=== PATIENT | female | born 1980 | race Caucasian/White ===

== ENCOUNTER 2022-09-01 12:40 | Outpatient (CLI) | payer MEDICAID, SELFPAY ==
--- NOTE | 2022-09-01 | US_ITS ---
WS: [id number] ULTRASOUND PELVIS TECHNIQUE: Transabdominal. Transvaginal not performed due to concerns about insurance coverage CLINICAL INFORMATION: RLQ ABDOMINAL PAIN LMP 08/04/22 : No. COMPARISON: None. FINDINGS: Heterogeneous uterus myometrium likely due to adenomyosis versus small fibroids. Orientation: Anteverted. Size: 9.2 cm x 5.8 cm x 5.3 cm Cervix: Normal Endometrium: Normal. Endometrium thickness: 0.7 cm. Adnexa: Large cyst RIGHT ovary measuring with peripheral nodule likely retracted clot. This measures 4.6 x 5.3 x 6.0 CM. Incidental simple cyst LEFT ovary measuring 1.3 x 1.0 x 1.2 cm Right ovary size: 6.9 cm x 4.9 cm x 5.8 cm. Right ovary volume: 103.1 ccm3 Left ovary size: 3.2 cm x 2.1 cm x 1.7 cm. Left ovary volume: 5.9 ccm3 Free fluid: None. Other findings: None. US/US pelvic complete* [id number] IMPRESSION: 1. Large cyst RIGHT ovary with peripheral nodule likely retracted clot. This m easures 4.6 x 5.3 x 6.0 CM. Recommend interval follow-up in one to 2 menstrual cycles to ensure resolution. 2. Incidental simple cyst LEFT ovary measuring 1.3 x 1.0 x 1.2 cm 3. Normal endometrium measures 6.4 mm 4. Heterogeneous uterus myometrium likely due to adenomyosis versus small fibr oids. 5. No free fluid in the cul-de-sac.
== END 2022-09-01 12:41 | disposition home or self-care (01) ==
LOC: RAD 12:47
PROVIDERS: Visit Provider Family Medicine
DX: R10.31 Right lower quadrant pain (principal); N83.201 Unspecified ovarian cyst, right side; N83.202 Unspecified ovarian cyst, left side
CPT/HCPCS: 76856

== ENCOUNTER 2022-09-22 11:39 | Outpatient (CLI) | payer MEDICAID, SELFPAY ==
--- NOTE | 2022-09-22 11:53 | MM_ITS ---
WS: [id number] DIAGNOSTIC BILATERAL DIGITAL BREAST TOMOSYNTHESIS MAMMOGRAPHY WITH CAD RIGHT breast ultrasound, limited HISTORY: OCCLUSION OF DUCT COMPARISON: None available. TECHNIQUE: Bilateral craniocaudad, mediolateral oblique, and mediolateral views are submitted with to mosynthesis and SM. Spot compression RIGHT CC and MLO. Computer aided detection utilized. Breast composition: The breasts are extremely dense, which lowers the sensitivity of mammography. Rosa asts are extremely dense. This is likely related to active ongoing milk production and continued jerome st-feeding. There is dense tissue posterior to each nipple. RIGHT breast ultrasound, limited. Ultrasound directed posterior to the nipple. There are mildly dilated ducts. Typical for history of l actation. There is no mass or significant duct ectasia or debris. MM/[place] [id number] IMPRESSION: BI-RADS: 2-Benign FOLLOW UP: 1 Year Follow-up
== END 2022-09-22 11:40 | disposition home or self-care (01) ==
LOC: RAD 11:39
PROVIDERS: Visit Provider Family Medicine
DX: N64.89 Other specified disorders of breast (principal)
CPT/HCPCS: 76642; 77062; G0279

== ENCOUNTER → 2023-11-03 11:11 | Outpatient (BNVA) | payer MEDICAID, SELFPAY | PROVIDERS: PCP Family Medicine; Visit Provider Nurse Practitioner Women's Health | DX: N93.9 Abnormal uterine and vaginal bleeding, unspecified (principal); D25.9 Leiomyoma of uterus, unspecified | CPT/HCPCS: 76830 ==

== ENCOUNTER 2023-11-21 03:54 | Inpatient (IN) | payer MEDICAID, SELFPAY ==
[2023-11-21] VITALS (80 sets, daily range): BP systolic 93–140; BP diastolic 48–117; PULSE 60–110; RESP 0–38; TEMP 36.6–39.3; O2SAT 94–100; BMI 21.6; BMI 23.9
--- NOTE | 2023-11-21 04:02 | CTR_ITS ---
PROCEDURE INFORMATION: Exam: CT Head Without Contrast Exam date and time: 11/21/2023 4:12 AM Age: 43 years old Clinical indication: Condition or disease; Convulsions or seizures; Patient HX: PT had witnessed seizure while being registered in [place]. Per family PT was having ALLEN with n/v prior to seizure. ; Additional info: AMS, seizure TECHNIQUE: Imaging protocol: Computed tomography of the head without contrast. Radiation optimization: All CT scans at this facility use at least one of these dose optimization techniques: automated exposure control; mA and/or kV adjustment per patient size (includes targeted exams where dose is matched to clinical indication); or iterative reconstruction. COMPARISON: No relevant prior studies available. RADIATION DOSE METRICS: Total DLP (mGy-cm): 211 FINDINGS: Brain: Normal. No hemorrhage. Unremarkable white matter. No mass effect. Cerebral ventricles: No ventriculomegaly. Paranasal sinuses: Visualized sinuses are unremarkable. No fluid levels. Mastoid air cells: Visualized mastoid air cells are well aerated. Bones/joints: Unremarkable. No acute fracture. Soft tissues: Unremarkable. CT/CT head wo con* [id number] IMPRESSION: No acute intracranial abnormality.
--- NOTE | 2023-11-21 04:02 | XRR_ITS ---
PROCEDURE INFORMATION: Exam: XR Chest Exam date and time: 11/21/2023 4:04 AM Age: 43 years old Clinical indication: Patient HX: PT had witnessed seizure while being registered in er lobby. Per family PT was having ALLEN with n/v prior to seizure. ; Additional info: AMS TECHNIQUE: Imaging protocol: Radiologic exam of the chest. Views: 1 view. COMPARISON: No relevant prior studies available. FINDINGS: Lungs: Unremarkable. No consolidation. Pleural spaces: Unremarkable. No pleural effusion. No pneumothorax. Heart/Mediastinum: Unremarkable. No cardiomegaly. Bones/joints: Unremarkable. XR/XR chest 1V portable [id number] IMPRESSION: No acute findings.
[2023-11-21 04:10] LABS: Basophils % 0.2 %; Eosinophils % 0.3 %; Lymphocytes # 2.4 10^3/uL (0.8-4.8); Lymphocytes % 17.5 %; Mean Corpuscular HGB Conc 32.8 g/dL (30-55); Mean Corpuscular Hemoglobin 31.8 pg (27-33); Mean Corpuscular Volume 96.8 fl (85-98); Mean Platelet Volume 11.9 fL (7.4-10.4); Monocytes # 0.6 10^3/uL (0.2-0.9); Monocytes % 4.6 %; Neutrophils # 10.51 10^3/uL (1.8-7.7); Neutrophils % 76.7 %; Nucleated Red Blood Cells % 0 %; Platelet Count 207 10^3/cmm (157-399); Red Blood Count 4.03 10^6/uL (3.85-5.65); Red Cell Distribution Width 10.9 % (12.1-15.1); White Blood Count 13.69 10^3/uL (3.29-11.43)
--- NOTE | 2023-11-21 04:11 | ED_ITS ---
Documented by User: Denny Anthony DO 11/21/23 05:55 HPI - Seizure 2 General: Chief Complaint: Seizure Stated Complaint: n/v delayed response Time Seen by Provider: 11/21/23 04:08 History of Present Illness: HPI Narrative: 43-year-old female with no prior history of seizure disorder. Her says that she can have a headache last evening, may be 7 PM or so. She began to vomit around that time as well. She had several episodes of vomiting. She will try to drink water, and vomited up. He noticed across the night that when she responded, the responses became slower and slower. He brought her to the hospital this morning for evaluation, and she collapsed in triage, and may have had a seizure. She presents obtunded at this point and unable to answer questions for herself. She does respond to touch. She is no longer rigid. Associated symptoms: Deny fever(s) Review of Systems 2 General: Reports: ROS unobtainable due to medical condition and Other (history taken from ) Const: Denies: fever(s) GI: Reports: abdominal pain, nausea and vomiting; Denies: diarrhea Neuro: Reports: headache(s) PFS ED 2 PFSH: Medical History (Updated 11/21/23 @ 05:55 by Denny Anthony DO) Right ovarian cyst Surgical History H/O removal of cyst #1-2011 --Laparotomy-- ovarian cyst removal Right ovary. Performed in the [facility] #2-2018 -- Laparoscopic cyst removal of right ovary. Performed in the [facility] Family History Grandmother Hypertension Diabetes Grandfather Stroke Denies family history of Colon cancer Ovarian cancer Prostate cancer Heart disease Hyperlipidemia Breast cancer Uterine cancer Thyroid disease Social History (Updated 11/21/23 @ 04:59 by Calos Marino MD) Alcohol intake: unknown Substance/Drug Use: unknown Physical Exam 2 Const: GENERAL APPEARANCE: ill appearing ORIENTATION/CONSCIOUSNESS: Yes patient obtunded HENMT: COMMON NORMALS: normocephalic, atraumatic and Normal external nose present HEAD & SCALP: normocephalic and atraumatic FACE & SINUS: normal facial exam and face symmetric NOSE: Normal external nose present and Normal nares present Eye: COMMON NORMALS: Equal, round and reactive pupils present PUPIL: Yes Equal, round and reactive pupils present Neck/C-Spine: GENERAL: Yes trachea midline and No anterior neck swelling Chest: CHEST: Yes Symmetrical chest wall rise Resp: COMMON NORMALS: clear to auscultation bilaterally EFFORT & INSPECTION: Yes tachypneic AUSCULTATION: clear to auscultation bilaterally Cardio: COMMON NORMALS: regular rate and regular rhythm RATE: regular rate RHYTHM: regular rhythm GI: COMMON NORMALS: Normal to inspection, nondistended, normoactive bowel sounds present Neuro: ALLA COMA SCALE: document GCS findings Alla coma scale eye opening: To pressure [place] coma scale verbal response: Sounds Alla coma scale motor response: Localising [place] coma scale total score: 9 Skin: NARRATIVE SKIN EXAM: Small abrasion right abdomen Course 2 Vital Signs: Vital signs: Vital Signs Pulse Rate 94 11/21/23 05:26 Respiratory Rate 20 H 11/21/23 05:26 Blood Pressure 101/69 11/21/23 05:26 Pulse Oximetry 100 11/21/23 05:26 Oxygen Delivery Me thod Room Air 11/21/23 04:00 MDM - Seizure MDM Narrative Medical decision making narrative: Headache and vomiting in a patient with mental status changes, who seized in the lobby. Vital signs are stable. She is mildly obtunded, but withdraws to stimuli purposefully, and opens eyes occasionally now. White blood cell count is 13.7. CBC is otherwise normal. Sodium is 120. Potassium is 3.0. Bicarb is 15. Lactate is 11. pH is 7.26. She is hydrated with IV fluid here. Head CT and belly CT are nonacute. Chest x-ray shows no acute findings. Spoke with the hospitalist. He will admit to ICU for hyponatremia with seizure. He has seen the patient in the ER. Lab Data 11/21/23 04:00 11/21/23 04:00 Labs: Radiology Impressions Chest X-Ray 11/21/23 04:02 IMPRESSION: No acute findings. Head CT 11/21/23 04:02 IMPRESSION: No acute intracranial abnormality. Abdomen/Pelvis CT 11/21/23 04:46 IMPRESSION: Negative for acute abdominopelvic pathology. Laboratory Results WBC 13.69 10^3/uL (3.29-11.43) H 11/21/23 04:00 RBC 4.03 10^6/uL (3.85-5.65) 11/21/23 04:00 Hgb 12.80 g/dL (11.27-16.99) 11/21/23 04:00 Hct 39.0 % (36-47) 11/21/23 04:00 MCV 96.8 fl (85-98) 11/21/23 04:00 MCH 31.8 pg (27-33) 11/21/23 04:00 MCHC 32.8 g/dL (30-55) 11/21/23 04:00 RDW 10.9 % (12.1-15.1) L 11/21/23 04:00 Plt Count 207 10^3/cmm (157-399) 11/21/23 04:00 MPV 11.9 fL (7.4-10.4) H 11/21/23 04:00 Neut % (Auto) 76.7 % 11/21/23 04:00 Lymph % (Auto) 17.5 % 11/21/23 04:00 Jack % (Auto) 4.6 % 11/21/23 04:00 Eos % (Auto) 0.3 % 11/21/23 04:00 Baso % (Auto) 0.2 % 11/21/23 04:00 Neut # (Auto) 10.51 10^3/uL (1.8-7.7) H 11/21/23 04:00 Lymph # (Auto) 2.4 10^3/uL (0.8-4.8) 11/21/23 04:00 Jack # (Auto) 0.6 10^3/uL (0.2-0.9) 11/21/23 04:00 Eos # (Auto) 0.0 10^3/uL (0.0-0.8) 11/21/23 04:00 Baso # (Auto) 0.0 10^3/uL (0.0-0.1) 11/21/23 04:00 Nucleated RBC % (auto) 0 % 11/21/23 04:00 Nucleated RBCs # 0.0 /100WBC 11/21/23 04:00 Specimen Type Arterial 11/21/23 04:13 Sample Site Radial, left 11/21/23 04:13 ABG pH 7.26 (7.35-7.45) L 11/21/23 04:13 ABG pCO2 30.6 mmHg (35-45) L 11/21/23 04:13 ABG pO2 99.7 mmHg (80.0-100.0) 11/21/23 04:13 ABG HCO3 13.7 mmol/L (22-26) L 11/21/23 04:13 ABG Base Excess -12.2 mmol/L (-2.0-2.0) L 11/21/23 04:13 Joey Test Pos 11/21/23 04:13 Hematocrit 35.4 % (37-47) L 11/21/23 04:13 O2 Delivery Device Room air 11/21/23 04:13 Manager Strategic Development ID [email or web address] 11/21/23 04:13 Sodium 120 mmol/L (136-145) L 11/21/23 04:00 Potassium 3.0 mmol/L (3.5-5.1) L 11/21/23 04:00 Chloride 83 mmol/L (98-107) L 11/21/23 04:00 Carbon Dioxide 15 mmol/L (22-29) L 11/21/23 04:00 Anion Gap 25.0 (5-19) H 11/21/23 04:00 BUN 11 mg/dL (6-20) 11/21/23 04:00 Creatinine 0.7 mg/dL (0.5-0.9) 11/21/23 04:00 GFR Calculation 92.2 mL/min (90-130) 11/21/23 04:00 Glucose 126 mg/dL (65-115) H 11/21/23 04:00 Calculated Osmolality 251 mOsm/kg (285-295) L 11/21/23 04:00 Lactic Acid 11.6 mmol/L (0.5-2.2) H* 11/21/23 04:00 Calcium 8.1 mg/dL (8.5-10.5) L 11/21/23 04:00 Phosphorus 2.6 mg/dL (2.5-4.5) 11/21/23 04:00 Magnesium 1.5 mg/dL (1.7-2.3) L 11/21/23 04:00 Total Bilirubin 1.3 mg/dL (0.15-1.2) H 11/21/23 04:00 AST 28 U/L (0-32) 11/21/23 04:00 ALT 18 U/L (0-33) 11/21/23 04:00 Alkaline Phosphatase 78 U/L (35-105) 11/21/23 04:00 C-Reactive Protein 3.0 mg/L (0.0-4.9) 11/21/23 04:00 Total Protein 7.5 g/dL (6.6-8.7) 11/21/23 04:00 Albumin 4.5 g/dL (3.5-5.2) 11/21/23 04:00 Globulin 3.0 g/dL (1.3-4.6) 11/21/23 04:00 Procalcitonin 0.04 ng/mL (0-0.5) 11/21/23 04:00 HCG, Qual Negative (Negative) 11/21/23 04:00 Urine Color Yellow (Yellow) 11/21/23 05:20 Urine Appearance Clear (CLEAR) 11/21/23 05:20 Urine pH 6 (5-7) 11/21/23 05:20 Ur Specific [place] 1.016 (1.005-1.030) 11/21/23 05:20 Urine Protein Neg (Negative) 11/21/23 05:20 Urine Glucose (UA) Norm (Normal) 11/21/23 05:20 Urine Ketones 1+ (Negative) H 11/21/23 05:20 Urine Blood 3+ (Negative) H 11/21/23 05:20 Urine Nitrate Negative (Negative) 11/21/23 05:20 Urine Bilirubin Neg (Negative) 11/21/23 05:20 Urine Urobilinogen Neg mg/dL (Negative) 11/21/23 05:20 Ur Leukocyte Esterase Negative (Negative) 11/21/23 05:20 Urine RBC 15-25 /hpf (0-2) H 11/21/23 05:20 Urine WBC 0-4 /hpf (0-5) H 11/21/23 05:20 Ur Squamous Epith Cells 0-4 /hpf (0-5) H 11/21/23 05:20 Amorphous Sediment Not Reportable 11/21/23 05:20 Urine Bacteria Trace /hpf (NONE) 11/21/23 05:20 Urine Mucus Trace /hpf 11/21/23 05:20 Salicylates < 0.3 mg/dL (3-10) L 11/21/23 04:00 Urine Opiates Screen Negative ng/mL (Negative) 11/21/23 05:20 Acetaminophen < 5.0 ug/mL (10-30) L 11/21/23 04:00 Ur Barbiturates Screen Negative ng/mL (Negative) 11/21/23 05:20 Ur Phencyclidine Scrn Negative ng/mL (Negative) 11/21/23 05:20 Ur Amphetamines Screen Negative ng/mL (Negative) 11/21/23 05:20 U Benzodiazepines Scrn Negative ng/mL (Negative) 11/21/23 05:20 Urine Cocaine Screen Negative ng/mL (Negative) 11/21/23 05:20 U Marijuana (THC) Screen Negative ng/mL (Negative) 11/21/23 05:20 Ethyl Alcohol < 10 mg/dL (0-10) 11/21/23 04:00 All radiology interpretation(s) finalized by discharge Critical Care Time 2 Critical Care Time: Critical Care Time: Yes Total Critical Care Time: 35 Attestation: This case had a high probability of a clinically significant, sudden, or life threatening deterioration of this patient's condition which required my full and direct attention, intervention and personal management. Time is independent of any procedures performed Discharge Plan Discharge Patient Disposition: Admitted As Inpatient Admit Provider: Calos Marino Clinical Impression: Seizure, Lactic acidosis, Nausea & vomiting, Hypokalemia Condition: Serious Coding Level of Care Code ED Ladies Attendant for Chg Fwd Documented by User: Calos Marino MD 11/21/23 05:33 HPI - Seizure 2 General: Chief Complaint: Seizure Stated Complaint: n/v delayed response Time Seen by Provider: 11/21/23 04:08 PFSH ED 2 PFSH: Medical History (Updated 11/21/23 @ 05:55 by Denny Anthony DO) Right ovarian cyst Surgical History H/O removal of cyst #1-2011 --Laparotomy-- ovarian cyst removal Right ovary. [facility] -- Laparoscopic cyst removal of right ovary. Performed in the [facility] Family History Grandmother Hypertension Diabetes Grandfather Stroke Denies family history of Colon cancer Ovarian cancer Prostate cancer Heart disease Hyperlipidemia Breast cancer Uterine cancer Thyroid disease Social History (Updated 11/21/23 @ 04:59 by Calos Marino MD) Alcohol intake: unknown Substance/Drug Use: unknown Physical Exam 2 Neuro: ALLA COMA SCALE: document GCS findings Alla coma scale total score: 9 Course 2 Vital Signs: Vital signs: Vital Signs Pulse Rate 94 11/21/23 05:26 Respiratory Rate 20 H 11/21/23 05:26 Blood Pressure 101/69 11/21/23 05:26 Pulse Oximetry 100 11/21/23 05:26 Oxygen Delivery Me thod Room Air 11/21/23 04:00 MDM - Seizure Lab Data 11/21/23 04:00 11/21/23 04:00 Labs: Radiology Impressions Chest X-Ray 11/21/23 04:02 IMPRESSION: No acute findings. Head CT 11/21/23 04:02 IMPRESSION: No acute intracranial abnormality. Abdomen/Pelvis CT 11/21/23 04:46 IMPRESSION: Negative for acute abdominopelvic pathology. Laboratory Results WBC 13.69 10^3/uL (3.29-11.43) H 11/21/23 04:00 RBC 4.03 10^6/uL (3.85-5.65) 11/21/23 04:00 Hgb 12.80 g/dL (11.27-16.99) 11/21/23 04:00 Hct 39.0 % (36-47) 11/21/23 04:00 MCV 96.8 fl (85-98) 11/21/23 04:00 MCH 31.8 pg (27-33) 11/21/23 04:00 MCHC 32.8 g/dL (30-55) 11/21/23 04:00 RDW 10.9 % (12.1-15.1) L 11/21/23 04:00 Plt Count 207 10^3/cmm (157-399) 11/21/23 04:00 MPV 11.9 fL (7.4-10.4) H 11/21/23 04:00 Neut % (Auto) 76.7 % 11/21/23 04:00 Lymph % (Auto) 17.5 % 11/21/23 04:00 Jack % (Auto) 4.6 % 11/21/23 04:00 Eos % (Auto) 0.3 % 11/21/23 04:00 Baso % (Auto) 0.2 % 11/21/23 04:00 Neut # (Auto) 10.51 10^3/uL (1.8-7.7) H 11/21/23 04:00 Lymph # (Auto) 2.4 10^3/uL (0.8-4.8) 11/21/23 04:00 Jack # (Auto) 0.6 10^3/uL (0.2-0.9) 11/21/23 04:00 Eos # (Auto) 0.0 10^3/uL (0.0-0.8) 11/21/23 04:00 Baso # (Auto) 0.0 10^3/uL (0.0-0.1) 11/21/23 04:00 Nucleated RBC % (auto) 0 % 11/21/23 04:00 Nucleated RBCs # 0.0 /100WBC 11/21/23 04:00 Specimen Type Arterial 11/21/23 04:13 Sample Site Radial, left 11/21/23 04:13 ABG pH 7.26 (7.35-7.45) L 11/21/23 04:13 ABG pCO2 30.6 mmHg (35-45) L 11/21/23 04:13 ABG pO2 99.7 mmHg (80.0-100.0) 11/21/23 04:13 ABG HCO3 13.7 mmol/L (22-26) L 11/21/23 04:13 ABG Base Excess -12.2 mmol/L (-2.0-2.0) L 11/21/23 04:13 Joey Test Pos 11/21/23 04:13 Hematocrit 35.4 % (37-47) L 11/21/23 04:13 O2 Delivery Device Room air 11/21/23 04:13 Manager Strategic Development ID [email or web address] 11/21/23 04:13 Sodium 120 mmol/L (136-145) L 11/21/23 04:00 Potassium 3.0 mmol/L (3.5-5.1) L 11/21/23 04:00 Chloride 83 mmol/L (98-107) L 11/21/23 04:00 Carbon Dioxide 15 mmol/L (22-29) L 11/21/23 04:00 Anion Gap 25.0 (5-19) H 11/21/23 04:00 BUN 11 mg/dL (6-20) 11/21/23 04:00 Creatinine 0.7 mg/dL (0.5-0.9) 11/21/23 04:00 GFR Calculation 92.2 mL/min (90-130) 11/21/23 04:00 Glucose 126 mg/dL (65-115) H 11/21/23 04:00 Calculated Osmolality 251 mOsm/kg (285-295) L 11/21/23 04:00 Lactic Acid 11.6 mmol/L (0.5-2.2) H* 11/21/23 04:00 Calcium 8.1 mg/dL (8.5-10.5) L 11/21/23 04:00 Phosphorus 2.6 mg/dL (2.5-4.5) 11/21/23 04:00 Magnesium 1.5 mg/dL (1.7-2.3) L 11/21/23 04:00 Total Bilirubin 1.3 mg/dL (0.15-1.2) H 11/21/23 04:00 AST 28 U/L (0-32) 11/21/23 04:00 ALT 18 U/L (0-33) 11/21/23 04:00 Alkaline Phosphatase 78 U/L (35-105) 11/21/23 04:00 C-Reactive Protein 3.0 mg/L (0.0-4.9) 11/21/23 04:00 Total Protein 7.5 g/dL (6.6-8.7) 11/21/23 04:00 Albumin 4.5 g/dL (3.5-5.2) 11/21/23 04:00 Globulin 3.0 g/dL (1.3-4.6) 11/21/23 04:00 Procalcitonin 0.04 ng/mL (0-0.5) 11/21/23 04:00 HCG, Qual Negative (Negative) 11/21/23 04:00 Urine Color Yellow (Yellow) 11/21/23 05:20 Urine Appearance Clear (CLEAR) 11/21/23 05:20 Urine pH 6 (5-7) 11/21/23 05:20 Ur Specific [place] 1.016 (1.005-1.030) 11/21/23 05:20 Urine Protein Neg (Negative) 11/21/23 05:20 Urine Glucose (UA) Norm (Normal) 11/21/23 05:20 Urine Ketones 1+ (Negative) H 11/21/23 05:20 Urine Blood 3+ (Negative) H 11/21/23 05:20 Urine Nitrate Negative (Negative) 11/21/23 05:20 Urine Bilirubin Neg (Negative) 11/21/23 05:20 Urine Urobilinogen Neg mg/dL (Negative) 11/21/23 05:20 Ur Leukocyte Esterase Negative (Negative) 11/21/23 05:20 Urine RBC 15-25 /hpf (0-2) H 11/21/23 05:20 Urine WBC 0-4 /hpf (0-5) H 11/21/23 05:20 Ur Squamous Epith Cells 0-4 /hpf (0-5) H 11/21/23 05:20 Amorphous Sediment Not Reportable 11/21/23 05:20 Urine Bacteria Trace /hpf (NONE) 11/21/23 05:20 Urine Mucus Trace /hpf 11/21/23 05:20 Salicylates < 0.3 mg/dL (3-10) L 11/21/23 04:00 Urine Opiates Screen Negative ng/mL (Negative) 11/21/23 05:20 Acetaminophen < 5.0 ug/mL (10-30) L 11/21/23 04:00 Ur Barbiturates Screen Negative ng/mL (Negative) 11/21/23 05:20 Ur Phencyclidine Scrn Negative ng/mL (Negative) 11/21/23 05:20 Ur Amphetamines Screen Negative ng/mL (Negative) 11/21/23 05:20 U Benzodiazepines Scrn Negative ng/mL (Negative) 11/21/23 05:20 Urine Cocaine Screen Negative ng/mL (Negative) 11/21/23 05:20 U Marijuana (THC) Screen Negative ng/mL (Negative) 11/21/23 05:20 Ethyl Alcohol < 10 mg/dL (0-10) 11/21/23 04:00 Discharge Plan Discharge Patient Disposition: Admitted As Inpatient Admit Provider: Calos Marino Clinical Impression: Seizure, Lactic acidosis, Nausea & vomiting, Hypokalemia Condition: Serious Coding Level of Care Code ED Ladies Attendant for Oleg Maki
[2023-11-21 04:22] LABS: HCG, Serum Qual Negative (Negative)
[2023-11-21] MEDS: LORazepam 2 mg/mL INJ 10 mL MDV IVP (04:22)
[2023-11-21 04:24] LABS: ABG PCO2 30.6 mmHg (35-45); ABG PH Result 7.26 (7.35-7.45); Arterial Blood Gas Hematocrit 35.4 % (37-47); Base Excess ABG -12.2 mmol/L (-2.0-2.0); Blood Gas Allen Test Pos; Blood Gas Sample Site Radial, left; Blood Gas Sample Type Arterial; HCO3 ABG 13.7 mmol/L (22-26); Oxygen Device ROOM AIR; PO2 ABG 99.7 mmHg (80.0-100.0)
[2023-11-21] MEDS: sodium chloride 0.9% 1,000 ML 999 ML IV (04:28)
[2023-11-21 04:31] LABS: Alanine Aminotransferase 18 U/L (0-33); Albumin Level 4.5 g/dL (3.5-5.2); Alkaline Phosphatase 78 U/L (35-105); Aspartate Amino Transferase 28 U/L (0-32); Blood Urea Nitrogen 11 mg/dL (6-20); Calcium 8.1 mg/dL (8.5-10.5); Carbon Dioxide 15 mmol/L (22-29); Chloride 83 mmol/L (98-107); Creatinine Clr Calc Pharmacy 96.4833; Glomerular Filtration Rate 92.2 mL/min (90-130); Glucose 126 mg/dL (65-115); Magnesium 1.5 mg/dL (1.7-2.3); Osmolality Calculated 251 mOsm/kg (285-295); Phosphorus 2.6 mg/dL (2.5-4.5); Sodium 120 mmol/L (136-145); Total Bilirubin 1.3 mg/dL (0.15-1.2); Total Protein 7.5 g/dL (6.6-8.7)
[2023-11-21 04:32] LABS: Lactic Sepsis W/Reflex 11.6 mmol/L (0.5-2.2)
[2023-11-21 04:33] LABS: Acetaminophen < 5.0 ug/mL (10-30); Alcohol Level < 10 mg/dL (0-10); Salicylate < 0.3 mg/dL (3-10)
--- NOTE | 2023-11-21 04:46 | CTR_ITS ---
PROCEDURE INFORMATION: Exam: CT Abdomen And Pelvis With Contrast Exam date and time: 11/21/2023 5:00 AM Age: 43 years old Clinical indication: Abnormal findings; Abnormal lab test; Nausea and vomiting; Prior surgery; Surgery date: 6+ months; Surgery type: Ovarian cyst; Patient HX: N/v with elevated wbc and lactic acid of 11.6. ; Additional info: Vomiting, abd pain TECHNIQUE: Imaging protocol: Computed tomography of the abdomen and pelvis with contrast. Radiation optimization: All CT scans at this facility use at least one of these dose optimization techniques: automated exposure control; mA and/or kV adjustment per patient size (includes targeted exams where dose is matched to clinical indication); or iterative reconstruction. Contrast material: OMNI 350; Contrast volume: 80 ml; Contrast route: INTRAVENOUS (IV); COMPARISON: US transvaginal [id number] 11/03/2023 11:22 AM RADIATION DOSE METRICS: Total DLP (mGy-cm): 1458.16 FINDINGS: Liver: Small simple cyst right inferior liver. Gallbladder and bile ducts: Normal. No calcified stones. No ductal dilation. Pancreas: Normal. No ductal dilation. Spleen: Normal. No splenomegaly. Adrenal glands: Normal. No mass. Kidneys and ureters: Normal. No hydronephrosis. Stomach and bowel: Unremarkable. No obstruction. No mucosal thickening. Appendix: No evidence of appendicitis. Intraperitoneal space: Unremarkable. No free air. No significant fluid collection. Vasculature: Unremarkable. No abdominal aortic aneurysm. Lymph nodes: Unremarkable. No enlarged lymph nodes. Urinary bladder: Valentine catheter within the bladder. Negative for bladder wall thickening. Reproductive: Unremarkable as visualized. Bones/joints: Unremarkable. No acute fracture. Soft tissues: Unremarkable. CT/CT abdomen pelvis w con* [id number] IMPRESSION: Negative for acute abdominopelvic pathology.
--- NOTE | 2023-11-21 04:55 | P.HP_ITS ---
Providers/Chief Complaint 2 Primary Care Provider: Moise Whitehead MD Chief Complaint: n/v delayed response History of Present Illness Una Crain is a 43 year old female with a past medical history significant for ovarian cyst who presents to the emergency department with intractable nausea and vomiting. Of note, patient collapsed and appeared to have seizure in the ED waiting room. Patient has no known history of seizure disorder. She appears to be in a postictal state on physical exam and unable to provide pertinent history. History obtained from collateral information from family, ED provider and chart reviewing. Patient was reportedly in her usual state of health until yesterday evening around 7 PM when she developed severe headache following by severe and intractable nausea and vomiting. They report multiple episodes of emesis. Spouse noted her responses throughout the course of the evening became slower and slower as she became more lethargic. Spouse denies any similar symptoms. He states they have two children who also have been well without symptoms. They have been eating the same foods. He denies that she has complained of other new complaints. Review of Systems 2 Narrative: A complete review of systems was attempted to be obtained but unable as patient is in a stuporous state and unable to provide. Medications/Allergies Home Medications Medication Instructions Recorded Confirmed Last Taken Type multivitamin 1 tab PO DAILY 10/12/23 11/16/23 Unknown History naproxen 500 mg tablet 500 mg PO BID PRN pain #30 tabs 10/12/23 11/16/23 Unknown Rx Allergies Allergy/AdvReac Type Severity Reaction Status Date / Time No Known Allergies Allergy Unverified 11/16/23 10:39 PFSH Acute 2 PFSH: Medical History (Updated 11/21/23 @ 05:06 by Calos Marino MD) Right ovarian cyst Surgical History H/O removal of cyst #1-2011 --Laparotomy-- ovarian cyst removal Right ovary. Performed in the [facility] #2-2018 -- Laparoscopic cyst removal of right ovary. Performed in the [facility] Family History Grandmother Hypertension Diabetes Grandfather Stroke Denies family history of Colon cancer Ovarian cancer Prostate cancer Heart disease Hyperlipidemia Breast cancer Uterine cancer Thyroid disease Social History (Updated 11/21/23 @ 04:59 by Calos Marino MD) Alcohol intake: unknown Substance/Drug Use: unknown Vitals/I&O/Wt Last Vital Signs Pulse 79 11/21/23 04:34 Resp 20 H 11/21/23 04:34 BP 132/83 11/21/23 04:34 Pulse Ox 97 11/21/23 04:34 O2 Del Method Room Air 11/21/23 04:00 Weight last 48 hrs Weight 58.967 kg Physical Exam 2 Narrative: General: Patient is lethargic. Withdrawals to pain. Moves all 4 extremities. Head: Normocephalic. Atraumatic. Dry mucous membranes. Neck: No JVD. Cardiovascular: RRR. No gallops. No murmurs. No peripheral edema. Lungs: Clear to auscultation, no use of accessory muscles, no crackles or wheezes. Skin: No jaundice. No rashes. Abdomen: Normal bowel sounds, abdomen soft and nontender. Extremities: No cyanosis or clubbing. Musculoskeletal: No swollen or erythematous joints. Neurological: No myoclonus. Lethargic. Data 11/21/23 04:00 11/21/23 04:00 A&P Assessment and plan (1) Seizure: Seizure-like activity noted in ER waiting room area; now appears postictal on physical exam No known prior history of seizure Most likely related to underlying severe hyponatremia Treat electrolyte imbalances Given 1 L NS bolus in ED Plan for hypertonic if she seizes again or Na does not improve on recheck Seizure precautions Head CT reviewed, negative for acute findings Consider MRI, EEG and neurology consult pending clinical course (2) Nausea & vomiting: Intractable nausea and vomiting a/w headache producing multiple electrolyte abnormalities, metabolic/lactic acidosis Imaging reviewed, no obstruction noted on CT abd/pelvis Start IVF resuscitation Antiemetics as needed (3) Hyponatremia: Severe hyponatremia producing neurological symptoms w/ seizure Start correcting sodium Serial electrolyte checks (4) Hypokalemia: Likely from GI loss Replacing potassium Telemetry monitoring (5) Hypomagnesemia: Replace Mg (6) Lactic acidosis: Suspect 2/2 seizure, severe dehydration and underlying illness Obtain blood cultures Check inflammatory markers Plan DVT ppx: Heparin Code: Full Attestations 2 Medical Necessity Statement*: Pt presents with intractable nausea and vomiting with ED course complicated by seizure in waiting area likely from severe electrolyte disturbances with [facility] seizure workup/management, electrolyte management, symptom control of nausea/vomiting and supportive care. Coding Level of Care Code Acute Code for [facility] Diagnoses Seizure R56.9 Nausea & vomiting R11.2 Hyponatremia E87.1 Hypokalemia E87.6 Hypomagnesemia E83.42 Lactic acidosis E87.20
[2023-11-21] MEDS: iohexol 350 mg/mL 500 mL Btl (per mL) IV (05:01)
[2023-11-21 05:43] LABS: Add Urine Culture? Yes; Add Urine Microscopic? YES; Amphetamines Screen Urine Negative (Negative); Bacteria Urine TRACE /hpf; Barbiturates Screen Urine Negative (Negative); Benzodiazepines Screen Urine Negative (Negative); Bilirubin Urine Neg (Negative); Blood Urine 3+ (Negative); Cocaine Screen Urine Negative (Negative); Glucose Urine UA Norm (Normal); Ketones Urine 1+ (Negative); Leukocyte Esterase Urine Negative (Negative); Mucus Urine TRACE /hpf; Nitrate Urine Negative (Negative); Opiate Screen Urine Negative (Negative); PCP Screen Urine Negative (Negative); Protein Urine Neg (Negative); RBC Urine 15-25 /hpf (0-2); Specific Gravity, Urine 1.016 (1.005-1.030); Squamous Epithelial Cell Urine 0-4 /hpf (0-5); THC Screen Urine Negative (Negative); Urine Appearance Clear (CLEAR); Urine Color Yellow (Yellow); Urobilinogen Urine Neg (Negative); WBC Urine 0-4 /hpf (0-5); pH Urine 6 (5-7)
[2023-11-21 05:46] LABS: Procalcitonin 0.04 ng/mL (0-0.5)
[2023-11-21 05:54] LABS: Reflex Lactate Order REFLEX LACTIC ORDERD
[2023-11-21 07:11] LABS: Adenovirus Not Detected (NOT DETECT); Chlamydia Pneumoniae Not Detected (NOT DETECT); Coronavirus 229E,HKU1,NL63,OC4 Not Detected (NOT DETECT); Human Metapneumovirus Not Detected (NOT DETECT); Human Rhinovirus/Enterovirus Not Detected (NOT DETECT); Influenza A Not Detected (NOT DETECT); Influenza A H1 Not Detected (NOT DETECT); Influenza A H1-2009 Not Detected (NOT DETECT); Influenza A H3 Not Detected (NOT DETECT); Influenza B Not Detected (NOT DETECT); Mycoplasma Pneumoniae Not Detected (NOT DETECT); Parainfluenza Virus Type 1 Not Detected (NOT DETECT); Parainfluenza Virus Type 2 Not Detected (NOT DETECT); Parainfluenza Virus Type 3 Not Detected (NOT DETECT); Parainfluenza Virus Type 4 Not Detected (NOT DETECT); Respiratory Syncytial Virus A Not Detected (NOT DETECT); Respiratory Syncytial Virus B Not Detected (NOT DETECT); SARS-COV-2 Not Detected (NOT DETECT)
[2023-11-21 07:12] LABS: Lactic Acid level (Lactate) 1.3 mmol/L (0.5-2.2)
[2023-11-21 07:13] LABS: Anion Gap 9.4 (5-19); Blood Urea Nitrogen 10 mg/dL (6-20); Calcium 7.2 mg/dL (8.5-10.5); Carbon Dioxide 21 mmol/L (22-29); Chloride 88 mmol/L (98-107); Creatinine Clr Calc Pharmacy 117.4765; Glomerular Filtration Rate 110.2 mL/min (90-130); Glucose 115 mg/dL (65-115); Osmolality Calculated 240 mOsm/kg (285-295); Potassium 3.4 mmol/L (3.5-5.1)
[2023-11-21 07:14] LABS: Sodium 115 mmol/L (136-145)
[2023-11-21] MEDS: magnesium sulfate premix 2 GM/50 ML PIGGYBACK IV (07:40)
[2023-11-21] MEDS: potassium chloride premix 100 ML 25 MEQ IV (07:43)
[2023-11-21] MEDS: heparin 5,000 unit/mL INJ 1 mL 5000 UNIT SUBCUT ×2 (08:00→17:58)
[2023-11-21] MEDS: pantoprazole 40 mg SDV IVP ×2 (08:00→17:58)
[2023-11-21] MEDS: sodium chloride 3% 500 ML 30 ML IV (08:12)
--- NOTE | 2023-11-21 09:31 | XR_ITS ---
WS: [id number] Exam: XR chest 1V portable [id number] Date/Time of Exam: 11/21/2023 10:13 AM Reason For Exam: Post PICC insertion Comparison with previous study performed 11/21/2023 at 4:06 a.m. A right-sided PICC line has been placed and ends at the cavoatrial junction. The lungs are clear and fully expanded. Normal cardiomediastinal silhouette. Unremarkable regional bony elements. IMPRESSION: 1. Right-sided PICC line ending at the cavoatrial junction. The chest is otherwise unremarkable.
--- NOTE | 2023-11-21 10:03 | PC.NURSE ---
Upon shift change this moring, patient had just arrived from ER. HR: 85, BP: 120/76, SPO2: 100% on room air, Temp:98.3. Mental status is altered, will withdraw from pain only. Critical labs were then reported, Sodium of 115. Nurse alerted Dr Sierra and received orders for 3% saline and PRN ativan. PICC line ordered due to 3% saline, started new IV to right AC and verified it flushed and draws to use in the meantime. Will switch hypertonics to picc line after placement.
--- NOTE | 2023-11-21 10:47 | PICC.NOTE ---
Triple lumen PICC placed to right basilic vein. Referred to vascular access nurse for PICC placement due to need for 3%NaCl infusion due to low sodium levels. Risks and benefits discussed and informed consent obtained from patient spouse via phone. Right arm assessed with right basilic vein measuring 5.0 mm, straight, and apparent best choice for placement. Using sterile technique and MST, right basilic vein accessed x 1 stick. Mid-arm circumference measured 10 cm from right AC 29 cm. Trimmed cath 34 cm with 0 cm external length noted. CXR shows tip in distal SVC, cavoatrial junction, in good position for use per radiologist. Line secured with stat-lock. Insertion site covered with Biopatch and TSM. Report given to bedside nurseWiliam.
[2023-11-21 11:12] LABS: Blood Urea Nitrogen 8 mg/dL (6-20); Calcium 7.1 mg/dL (8.5-10.5); Carbon Dioxide 19 mmol/L (22-29); Chloride 87 mmol/L (98-107); Creatinine Clr Calc Pharmacy 176.2148; Glomerular Filtration Rate 175.9 mL/min (90-130); Glucose 101 mg/dL (65-115); Osmolality Calculated 242 mOsm/kg (285-295)
[2023-11-21 11:14] LABS: Sodium 117 mmol/L (136-145)
[2023-11-21 11:15] LABS: Anion Gap 14.5 (5-19); Potassium 3.5 mmol/L (3.5-5.1)
--- NOTE | 2023-11-21 11:24 | PC.NURSE ---
switched hypertonic saline to PICC line at 0935.
--- NOTE | 2023-11-21 12:01 | P.PN_ITS ---
Subjective 2 Subjective: Patient is obtunded and unable to answer questions at this time. She does withdraw from pain but is unable to awaken and answer questions. is present this morning. Medications: Reviewed: Yes Vitals/I&O/Wt Last Vital Signs Temp 98.3 F 11/21/23 08:45 Pulse 60 11/21/23 09:45 Resp 21 H 11/21/23 09:45 BP 112/84 11/21/23 09:45 Pulse Ox 98 11/21/23 09:45 O2 Del Method Room Air 11/21/23 08:45 11/20/23 11/21/23 11/21/23 22:59 06:59 14:59 Intake Total 1000 / 1000 Balance 1000 / 1000 Weight last 48 hrs Weight 143 lb 14.4 oz Weight 130 lb Physical Exam 2 Narrative: General: Patient is lethargic. Withdrawals to pain. Moves all 4 extremities. Head: Normocephalic. Atraumatic. Neck: No JVD. Cardiovascular: RRR. No gallops. No murmurs. No peripheral edema. Lungs: Clear to auscultation, no use of accessory muscles, no crackles or wheezes. Skin: No jaundice. No rashes. Abdomen: Normal bowel sounds, abdomen soft and nontender. Extremities: No cyanosis or clubbing. Musculoskeletal: No swollen or erythematous joints. Neurological: No myoclonus. Lethargic. Urinary Catheter Management: Valentine: Cath Placed During This Visit: yes Reason for Continuing Indwelling Catheter: Accurate Measurement of Urinary Output in Critically Ill Patients Urinary Catheter Date of Insertion: 11/21/23 Urinary Catheter Time of Insertion: 04:55 Data 11/21/23 04:00 11/21/23 14:30 Micro: Microbiology 11/21/23 05:21 Blood Culture - Preliminary Blood SPECIMEN COLLECTED 11/21/23 05:16 Blood Culture - Preliminary Blood SPECIMEN COLLECTED A&P Assessment and plan (1) Seizure: (2) Nausea & vomiting: (3) Hyponatremia: (4) Hypokalemia: (5) Hypomagnesemia: (6) Lactic acidosis: Plan 43-year-old female admitted for seizure activity, severe hyponatremia, and multiple electrolyte abnormalities. Continue close ICU monitoring. Continues to be obtunded, possibly from hyponatremia and post-ictal state. No further seizures overnight. Hyponatremia worsened overnight to 115. Will start hypertonic saline protocol with q4 rechecks. Uncertain as to the chronicity of hyponatremia, so will treat as chronic. Will have PICC team place line and start hypertonic saline. Goal to correct Na 4-6 over the first 24 hours and then 4-6 mmol/L daily. Currently receiving magnesium and potassium replacement. Will recheck once these have completed. Will check tick panel as patient has had tick bites recently per . Hyponatremia, leukocytosis, elevated Bili noted. Other LFT's normal. Start Doxycycline as empiric therapy. Respiratory viral panel negative. Blood and urine cultures pending. Ca is 6.6 today. Was 8.1 on admission. Will recheck in am and replace if necessary. Continue IVF's. NPO until mental status improves. Neurochecks, telemetry. Strict I/O's, daily weights. Recheck am labs. Code Status: Full IVF: 3% Saline DVT PPx: Heparin GI PPx: Protonix ABx: Doxycycline Diet: NPO Discharge plan: TBD. Attestations 2 Medical Necessity Statement*: Will need continued hospitalization for management of severe hyponatremia, new- onset seizures, correction of electrolytes, IV antibiotics, cultures, supportive care. Coding Level of Care Code Critical Care >/= 30 minutes Critical care time (in minutes): 41 The high probability of a clinically significant, sudden or life threatening deterioration, as referenced in this documentation, required my full and direct attention, intervention and personal management. The critical care time shown is in addition to time spent performing any reported separately billable procedures and includes the following: [x] Data and vital sign review and interpretation [x ] Patient assessment, examination and intervention [x] Medication orders and management [x] Patient/Family updates as able [x] Care Coordination and Documentation. Diagnoses Seizure R56.9 Nausea & vomiting R11.2 Hyponatremia E87.1 Hypokalemia E87.6 Hypomagnesemia E83.42 Lactic acidosis E87.20
[2023-11-21 15:11] LABS: Anion Gap 15.6 (5-19); Blood Urea Nitrogen 7 mg/dL (6-20); Calcium 6.6 mg/dL (8.5-10.5); Carbon Dioxide 18 mmol/L (22-29); Chloride 90 mmol/L (98-107); Creatinine Clr Calc Pharmacy 140.9718; Glucose 96 mg/dL (65-115); Osmolality Calculated 246 mOsm/kg (285-295); Potassium 4.6 mmol/L (3.5-5.1)
[2023-11-21 15:30] LABS: Sodium 119 mmol/L (136-145)
[2023-11-21 17:29] LABS: Anion Gap 10.1 (5-19); Blood Urea Nitrogen 7 mg/dL (6-20); Calcium 7.7 mg/dL (8.5-10.5); Carbon Dioxide 19 mmol/L (22-29); Chloride 96 mmol/L (98-107); Creatinine Clr Calc Pharmacy 117.4765; Glomerular Filtration Rate 110.2 mL/min (90-130); Glucose 101 mg/dL (65-115); Osmolality Calculated 250 mOsm/kg (285-295); Potassium 4.1 mmol/L (3.5-5.1); Sodium 121 mmol/L (136-145)
[2023-11-21 18:45] LABS: Calcium Urine Random 1.3 mg/dL
[2023-11-21 18:53] LABS: Urine Creatinine 7 mg/dL (28-217); Urine Protein Random 4 mg/dL; Urine Random Chloride 29 mmol/L; Urine Random Sodium 32 mmol/L
[2023-11-21 19:14] LABS: Urine Random Potassium 4 mmol/L
--- NOTE | 2023-11-21 19:29 | PC.NURSE ---
Late notes: At approximately 1400, patient has had 3500mL of urine output. Nurse alerted Dr Brooks of large amount of urine output and received orders for Urine chemistry labs. At 1820, BMP resulted. Sodium is now 121. An increase of 6 points since beginning of shift. Nurse alerted Dr Brooks and received orders to hold 3% saline and physician will reassess in the morning. 3% saline stopped at 1820, unable to titrate held order in the oct. at 1900, another 2000mL of urine was emptied from hernandez. Total of 5500mL today. Nurse alerted Dr Brooks to additional urine output, and that urine chemistries resulted. Received consult to nephrology orders. Dr brooks called the telenephrologist and they should be contacting us back within an hour to consult. In the 15 minutes it took to alert Dr Brooks and get nephrology orders, patient had approximately 300 more mL of urine output.
--- NOTE | 2023-11-21 19:37 | PC.NURSE ---
SHift summary: Mental status has slightly changed today, will occasionally open eyes to her name, but otherwise unresponsive. Increased fidgeting in bed. Worsening polyuria throughout the day, physician aware and nephrology has been consulted. Dr brooks wants sodium levels to increase by 6 points every 24 hours, there was a 6 point increase during day shift so the 3% saline was paused, reassess tommorow. Total urine output during day shift was 5500mL.
[2023-11-21] MEDS: acetaminophen 1,000 MG/100 ML PIGGYBACK 400 MG IV (20:17)
--- NOTE | 2023-11-21 20:50 | PC.NURSE ---
Addendum entered by Janet Quiros RN 11/21/23 22:46: Rhett* Original Note: Upon arrival to shift patient's temperature was 102.1 axillary with no antipyretic ordered. Dr. Talavera was contacted and gave telephone orders for IV tylenol ONCE and switch her PO doxycycline to IV. Dr. Cagle contacted me regarding patient's mental status and sodium level. She gave telephone orders to check Na levels Q4h and to call her with the next result.
--- NOTE | 2023-11-21 20:57 | PM.CONSULT ---
Providers/Reason For Consult Consulting Physician/Specialty*: kommana/nephrology Reason for Consult*: Hyponatremia Attending Physician: Av Sierra DO Primary Care Provider: Moise Whitehead MD History of Present Illness History of Present Illness Una Crain is a 43 year old female 28?labor patient is a 43-year-old female with past medical history of ovarian cyst she presented to the emergency department due to intractable nausea and vomiting. When she was in the waiting area patient appeared to have seizure-like activity. History obtained from review of ER records. Reportedly patient has severe headache and intractable nausea vomiting since yesterday. Patient currently confused and postictal. Lab data was significant for initial sodium of 120 that has dropped to 115. She was started on 3% saline at that point and currently off and the most recent sodium is 121. Also has low potassium of 3.0 on presentation. Has metabolic acidosis with a bicarb of 15. White count was elevated at 13.6. Head CT was negative. Review of Systems Narrative: other ROS negative Medications/Allergies Home Medications Medication Instructions Recorded Confirmed Last Taken Type multivitamin 1 tab PO DAILY 10/12/23 11/21/23 Unknown History naproxen 500 mg tablet 500 mg PO BID PRN pain #30 tabs 10/12/23 11/21/23 Unknown Rx Allergies Allergy/AdvReac Type Severity Reaction Status Date / Time No Known Allergies Allergy Unverified 11/16/23 10:39 Current Medications Generic Name Dose Route Start Last Admin Trade Name Freq PRN Reason Stop Dose Admin Heparin Sodium (Porcine) 5,000 unit 11/21/23 06:21 11/21/23 17:58 Heparin 5,000 Unit/Ml Inj 1 Ml SUBCUT 5,000 unit Q12H SUDARSHAN Administration Sodium Chloride 500 mls @ 30 mls/hr 11/21/23 07:45 11/21/23 08:12 Sodium Chloride 3% IV 30 mls/hr .[id number] SUDARSHAN Administration Pantoprazole Sodium 40 mg 11/21/23 06:21 11/21/23 17:58 Pantoprazole 40 Mg Sdv IVP 40 mg Q12H SUDARSHAN Administration PFSH Acute PFSH: Medical History (Updated 11/21/23 @ 05:55 by Denny Anthony DO) Right ovarian cyst Surgical History H/O removal of cyst #1-2011 --Laparotomy-- ovarian cyst removal Right ovary. Performed in the [facility] #-2018 -- Laparoscopic cyst removal of right ovary. Performed in the [facility] Family History Grandmother Hypertension Diabetes Grandfather Stroke Denies family history of Colon cancer Ovarian cancer Prostate cancer Heart disease Hyperlipidemia Breast cancer Uterine cancer Thyroid disease Social History (Updated 11/21/23 @ 04:59 by Calos Marino MD) Alcohol intake: unknown Substance/Drug Use: unknown Female Reproductive History: Date of last menstrual period: 11/21/23 Vitals/I&O/Wt Last Vital Signs Temp 102.1 F H 11/21/23 19:45 Pulse 103 H 11/21/23 20:30 Resp 18 11/21/23 20:30 BP 93/69 11/21/23 20:30 Pulse Ox 97 11/21/23 20:30 O2 Del Method Room Air 11/21/23 16:00 11/21/23 11/21/23 11/21/23 06:59 14:59 22:59 Intake Total 1000 / 1000 150 / 150 Output Total 3500 / 3500 2650 / 6150 Balance 1000 / 1000 -3500 / -3500 -2500 / -6000 Weight last 48 hrs Weight 65.272 kg Weight 58.967 kg Physical Exam Narrative: exam deferred Urinary Catheter Management: Valentine: Cath Placed During This Visit: yes Reason for Continuing Indwelling Catheter: Accurate Measurement of Urinary Output in Critically Ill Patients Urinary Catheter Date of Insertion: 11/21/23 Urinary Catheter Time of Insertion: 04:55 Data 11/21/23 04:00 11/21/23 16:46 Micro: Microbiology 11/21/23 05:21 Blood Culture - Preliminary Blood SPECIMEN COLLECTED 11/21/23 05:16 Blood Culture - Preliminary Blood SPECIMEN COLLECTED A&P Assessment and plan (1) Hyponatremia: 1. Hyponatremia: Appears to be hypovolemic in the setting of severe nausea and vomiting,and NSAIDs use . Symptomatic with acute onset seizure while in the emergency department. Status post 3% saline which is currently on hold. Sodium was 115 this morning and improved to 121 currently. Goal is to keep sodium in the 1 20-1 22 range for now to avoid rapid correction. Noted urine electrolytes, urine osmolality pending. Await repeat BMP:-If if sodium correction is about the goal, will give a dose of DDAVP. A 2. Polyuria : unclear etiology , await U osmolality , will consider DDAVP 2. Acute onset seizure: Likely from hyponatremia versus other . Workup in progress, head CT negative 3. Hypomagnesemia and hypocalcemia, repleted 4. Encephalopathy likely metabolic, monitor and workup in progress per primary team Consult Attestations Medical Necessity Statement: per courtneyky Coding Level of Care Code Acute Code for [facility] Diagnoses Hyponatremia E87.1
[2023-11-21 22:04] LABS: Blood Urea Nitrogen 6 mg/dL (6-20); Calcium 7.9 mg/dL (8.5-10.5); Carbon Dioxide 20 mmol/L (22-29); Chloride 100 mmol/L (98-107); Creatinine Clr Calc Pharmacy 100.6942; Glomerular Filtration Rate 92.2 mL/min (90-130); Glucose 91 mg/dL (65-115); Osmolality Calculated 267 mOsm/kg (285-295); Sodium 130 mmol/L (136-145)
[2023-11-21 22:06] LABS: Anion Gap 14.5 (5-19); Potassium 4.5 mmol/L (3.5-5.1)
[2023-11-21] MEDS: dextrose 5% 1,000 ML 50 ML IV (22:30)
--- NOTE | 2023-11-21 22:46 | PC.NURSE ---
Patient's newest sodium level was 130, Dr. Delaney was contacted and gave telephone orders to start D5W at 50mL/hr and give 1mcg SUBCUT desmopressin ONCE.
[2023-11-21] MEDS: desmopressin 4 mcg/mL INJ 1 MCG SUBCUT (23:05)
[2023-11-22] VITALS (37 sets, daily range): BP systolic 102–152; BP diastolic 55–88; PULSE 65–105; RESP 14–23; TEMP 36.7–38.1; O2SAT 91–100; BMI 21.0
[2023-11-22 02:04] LABS: Anion Gap 12.7 (5-19); Blood Urea Nitrogen 6 mg/dL (6-20); Calcium 7.9 mg/dL (8.5-10.5); Carbon Dioxide 20 mmol/L (22-29); Chloride 103 mmol/L (98-107); Creatinine Clr Calc Pharmacy 100.6942; Glomerular Filtration Rate 92.2 mL/min (90-130); Glucose 100 mg/dL (65-115); Osmolality Calculated 272 mOsm/kg (285-295); Potassium 3.7 mmol/L (3.5-5.1); Sodium 132 mmol/L (136-145)
--- NOTE | 2023-11-22 04:00 | PC.NURSE ---
Patient's newest sodium level was 132 and urine output had decreased after 1mcg or desmopressin. Dr. Delaney was contacted and gave telephone orders to increase the D5W to 75mL/hr and to give another 1mcg desmopressin SUBCUT.
[2023-11-22 05:17] LABS: Basophils % 0.3 %; Hematocrit 33.6 % (36-47); Lymphocytes # 1.6 10^3/uL (0.8-4.8); Lymphocytes % 14.5 %; Mean Corpuscular HGB Conc 35.1 g/dL (30-55); Mean Corpuscular Hemoglobin 32.1 pg (27-33); Mean Corpuscular Volume 91.3 fl (85-98); Mean Platelet Volume 12.1 fL (7.4-10.4); Monocytes # 1.5 10^3/uL (0.2-0.9); Neutrophils % 71.9 %; Nucleated Red Blood Cells % 0 %; Platelet Count 154 10^3/cmm (157-399); Red Blood Count 3.68 10^6/uL (3.85-5.65); Red Cell Distribution Width 11.2 % (12.1-15.1); White Blood Count 11.25 10^3/uL (3.29-11.43)
[2023-11-22] MEDS: heparin 5,000 unit/mL INJ 1 mL 5000 UNIT SUBCUT ×2 (05:42→18:04)
[2023-11-22] MEDS: pantoprazole 40 mg SDV IVP ×2 (05:42→18:03)
[2023-11-22] MEDS: desmopressin 4 mcg/mL INJ 1 MCG SUBCUT (05:43)
[2023-11-22 05:48] LABS: Alanine Aminotransferase 25 U/L (0-33); Albumin Level 3.6 g/dL (3.5-5.2); Alkaline Phosphatase 62 U/L (35-105); Anion Gap 13.5 (5-19); Aspartate Amino Transferase 79 U/L (0-32); Blood Urea Nitrogen 6 mg/dL (6-20); Calcium 7.8 mg/dL (8.5-10.5); Carbon Dioxide 21 mmol/L (22-29); Chloride 102 mmol/L (98-107); Creatinine Clr Calc Pharmacy 100.6942; Globulin 2.4 g/dL (1.3-4.6); Glomerular Filtration Rate 92.2 mL/min (90-130); Glucose 98 mg/dL (65-115); Osmolality Calculated 274 mOsm/kg (285-295); Phosphorus 1.9 mg/dL (2.5-4.5); Potassium 3.5 mmol/L (3.5-5.1); Sodium 133 mmol/L (136-145); Total Bilirubin 0.9 mg/dL (0.15-1.2)
[2023-11-22] MEDS: doxycycline 100 MG in sodium chloride 0.9% (plus) 100 ML IV ×2 (08:15→18:03)
--- NOTE | 2023-11-22 08:35 | P.PN_ITS ---
Subjective 2 Subjective: Appears more alert today. Able to open eyes and perform purposeful movements. Still unable to verbally communicate. Medications: Reviewed: Yes Vitals/I&O/Wt Last Vital Signs Temp 98.7 F 11/22/23 07:40 Pulse 70 11/22/23 06:26 Resp 17 11/22/23 04:15 BP 111/84 11/22/23 04:15 Pulse Ox 99 11/22/23 04:15 O2 Del Method Room Air 11/22/23 04:15 11/21/23 11/22/23 11/22/23 22:59 06:59 14:59 Intake Total 150 / 150 365.833 / 515.833 0 / 0 Output Total 3950 / 7450 550 / 8000 Balance -3800 / -7300 -184.167 / -7484.167 0 / 0 Weight last 48 hrs Weight 126 lb 8 oz Weight 143 lb 14.4 oz Weight 130 lb Physical Exam 2 Narrative: General: Able to open eyes. Remains non-verbal at this time. Moves all 4 extremities. Head: Normocephalic. Atraumatic. Neck: No JVD. Cardiovascular: RRR. No gallops. No murmurs. No peripheral edema. Lungs: Clear to auscultation, no use of accessory muscles, no crackles or wheezes. Skin: No jaundice. No rashes. Abdomen: Normal bowel sounds, abdomen soft and nontender. Extremities: No cyanosis or clubbing. Musculoskeletal: No swollen or erythematous joints. Neurological: No myoclonus. Urinary Catheter Management: Valentine: Cath Placed During This Visit: yes Reason for Continuing Indwelling Catheter: Accurate Measurement of Urinary Output in Critically Ill Patients Urinary Catheter Date of Insertion: 11/21/23 Urinary Catheter Time of Insertion: 04:55 Data 11/22/23 05:02 11/22/23 15:20 Micro: Microbiology 11/21/23 05:21 Blood Culture - Preliminary Blood NEGATIVE TO DATE 11/21/23 05:16 Blood Culture - Preliminary Blood NEGATIVE TO DATE A&P Assessment and plan (1) Seizure: (2) Nausea & vomiting: (3) Hyponatremia: (4) Hypokalemia: (5) Hypomagnesemia: (6) Lactic acidosis: Plan 43-year-old female admitted for seizure activity, severe hyponatremia, and multiple electrolyte abnormalities. Continue close ICU monitoring. Able to awaken to tactile stimuli. Remains non-verbal. Moves extremities appropriately. Unable to follow all instructions. Nephro consulted. Appreciate involvement with care of this patient. Urine Osmolality pending. Sodium improved to 131. Will defer to nephro for Correction rec's. She was started on desmopressin. Hypokalemia resolved, hypomag, resolved after replacement. monitor for now. Phos mildly low today to 1.9, Calcium at 8.1. Diet when mental status improves. Tick panel pending. Continue Doxycycline. Respiratory viral panel negative. Blood and urine cultures pending and negative to date. WBC count improved. Continue Neurochecks, telemetry. Strict I/O's, daily weights. Valentine remains in place. Code Status: Full IVF: none DVT PPx: Heparin GI PPx: Protonix ABx: Doxycycline Diet: NPO sips,chips,meds. Discharge plan: Likely home when appropriate. Attestations 2 Medical Necessity Statement*: Will need continued hospitalization for management of severe hyponatremia, new- onset seizures, correction of electrolytes, IV antibiotics, cultures, supportive care. Coding Level of Care Code Critical Care >/= 30 minutes Critical care time (in minutes): 43 The high probability of a clinically significant, sudden or life threatening deterioration, as referenced in this documentation, required my full and direct attention, intervention and personal management. The critical care time shown is in addition to time spent performing any reported separately billable procedures and includes the following: [x] Data and vital sign review and interpretation [x ] Patient assessment, examination and intervention [x] Medication orders and management [x] Patient/Family updates as able [x] Care Coordination and Documentation. Diagnoses Seizure R56.9 Nausea & vomiting R11.2 Hyponatremia E87.1 Hypokalemia E87.6 Hypomagnesemia E83.42 Lactic acidosis E87.20
[2023-11-22 09:08] LABS: Anion Gap 13.2 (5-19); Blood Urea Nitrogen 6 mg/dL (6-20); Calcium 6.6 mg/dL (8.5-10.5); Carbon Dioxide 19 mmol/L (22-29); Chloride 96 mmol/L (98-107); Creatinine Clr Calc Pharmacy 133.5919; Glucose 324 mg/dL (65-115); Osmolality Calculated 270 mOsm/kg (285-295); Potassium 3.2 mmol/L (3.5-5.1); Sodium 125 mmol/L (136-145)
[2023-11-22 11:00] LABS: Glucose Point of Care 103 mg/dL (70-110)
[2023-11-22 11:21] LABS: Lyme AB Screen <0.90 index
--- NOTE | 2023-11-22 14:44 | PM.PN ---
Subjective Subjective: pt still confused , awake , not following commands Medications: Reviewed: Yes Vitals/I&O/Wt Last Vital Signs Temp 98.6 F 11/22/23 11:56 Pulse 68 11/22/23 14:00 Resp 19 H 11/22/23 09:30 BP 119/69 11/22/23 09:30 Pulse Ox 100 11/22/23 09:30 O2 Del Method Room Air 11/22/23 09:30 11/21/23 11/22/23 11/22/23 22:59 06:59 14:59 Intake Total 150 / 150 365.833 / 515.833 663.75 / 663.75 Output Total 3950 / 7450 550 / 8000 175 / 175 Balance -3800 / -7300 -184.167 / -7484.167 488.75 / 488.75 Weight last 48 hrs Weight 57.379 kg Weight 65.272 kg Weight 58.967 kg Physical Exam Narrative: awake , confused no distress no edema Urinary Catheter Management: Valentine: Cath Placed During This Visit: yes Reason for Continuing Indwelling Catheter: Accurate Measurement of Urinary Output in Critically Ill Patients Urinary Catheter Date of Insertion: 11/21/23 Urinary Catheter Time of Insertion: 04:55 Data 11/22/23 05:02 11/22/23 08:47 Micro: Microbiology 11/21/23 05:20 Urine Culture - Preliminary Urine,Clean Catch 11/21/23 05:21 Blood Culture - Preliminary Blood NEGATIVE TO DATE 11/21/23 05:16 Blood Culture - Preliminary Blood NEGATIVE TO DATE A&P Assessment and plan (1) Hyponatremia: 1. Hyponatremia: Appears to be hypovolemic in the setting of severe nausea and vomiting,and NSAIDs use . Symptomatic with acute onset seizure while in the emergency department. Status post 3% saline which is currently on hold. Sodium was 115 and improved to 132 currently. s/p DDAVP and s/p d5w. 2. Polyuria : unclear etiology , await U osmolality , s/p DDAVP 2. Acute onset seizure: Likely from hyponatremia versus other . Workup in progress, head CT negative 3. Hypomagnesemia and hypocalcemia, repleted 4. Encephalopathy likely metabolic, monitor and workup in progress per primary team Attestations Medical Necessity Statement*: per medicine Coding Level of Care Code Acute Code for [facility] Fwd Diagnoses Hyponatremia E87.1
[2023-11-22 16:09] LABS: Anion Gap 11.7 (5-19); Blood Urea Nitrogen 7 mg/dL (6-20); Calcium 8.1 mg/dL (8.5-10.5); Carbon Dioxide 22 mmol/L (22-29); Chloride 101 mmol/L (98-107); Creatinine Clr Calc Pharmacy 111.3266; Glomerular Filtration Rate 110.2 mL/min (90-130); Glucose 97 mg/dL (65-115); Osmolality Calculated 270 mOsm/kg (285-295); Potassium 3.7 mmol/L (3.5-5.1); Sodium 131 mmol/L (136-145)
[2023-11-22] MEDS: LORazepam 2 mg/mL INJ 10 mL MDV 0.5 MG IVP (18:14)
--- NOTE | 2023-11-22 19:21 | PC.NURSE ---
Orientation: asked pt orientation questions in [place] language. states that she was able to tell him her last name and that he can tell she is getting a little better.
[2023-11-22] MEDS: ketorolac 30 mg/mL INJ 15 MG IVP (23:12)
--- NOTE | 2023-11-22 23:16 | PC.NURSE ---
Orientation: Pt is sitting up in bed asking for water and stated that her head hurts. Pt did not answer orientation questions, is no longer at bedside to ask them in [place] language.
[2023-11-23] VITALS (31 sets, daily range): BP systolic 112–140; BP diastolic 62–89; PULSE 66–100; RESP 13–25; TEMP 36.6–37; O2SAT 96–100
[2023-11-23 05:04] LABS: Basophils % 0.4 %; Eosinophils # 0.1 10^3/uL (0.0-0.8); Eosinophils % 0.6 %; Hematocrit 32.5 % (36-47); Lymphocytes # 1.9 10^3/uL (0.8-4.8); Lymphocytes % 20.9 %; Mean Corpuscular HGB Conc 33.8 g/dL (30-55); Mean Corpuscular Hemoglobin 31.2 pg (27-33); Mean Corpuscular Volume 92.1 fl (85-98); Monocytes % 10.3 %; Neutrophils # 6.23 10^3/uL (1.8-7.7); Neutrophils % 67.3 %; Nucleated Red Blood Cells % 0 %; Platelet Count 140 10^3/cmm (157-399); Red Blood Count 3.53 10^6/uL (3.85-5.65); Red Cell Distribution Width 11.1 % (12.1-15.1); White Blood Count 9.28 10^3/uL (3.29-11.43)
[2023-11-23] MEDS: pantoprazole 40 mg SDV IVP (05:37)
[2023-11-23 05:42] LABS: Alanine Aminotransferase 40 U/L (0-33); Albumin Level 3.5 g/dL (3.5-5.2); Alkaline Phosphatase 59 U/L (35-105); Anion Gap 14.4 (5-19); Aspartate Amino Transferase 109 U/L (0-32); Blood Urea Nitrogen 9 mg/dL (6-20); Carbon Dioxide 20 mmol/L (22-29); Chloride 95 mmol/L (98-107); Chol HDL Ratio 2.21 mg/dL (0.0-4.40); Cholesterol 150 mg/dL (0-200); Creatinine Clr Calc Pharmacy 111.3266; Globulin 2.5 g/dL (1.3-4.6); Glomerular Filtration Rate 110.2 mL/min (90-130); Glucose 73 mg/dL (65-115); HDL Cholesterol 68 mg/dL (60-100); LDL Cholesterol Calculated 71 mg/dL (50-129); LDL HDL Ratio 1.04 RATIO (0.00-3.22); Osmolality Calculated 259 mOsm/kg (285-295); Phosphorus 1.8 mg/dL (2.5-4.5); Potassium 3.4 mmol/L (3.5-5.1); Sodium 126 mmol/L (136-145); Thyroid Stimulating Hormone 2.07 uIU/mL (0.27-4.20); Total Bilirubin 0.9 mg/dL (0.15-1.2); Triglycerides 54 mg/dL (0-150)
[2023-11-23] MEDS: doxycycline 100 MG in sodium chloride 0.9% (plus) 100 ML IV ×2 (08:41→19:08)
--- NOTE | 2023-11-23 09:18 | P.PN_ITS ---
Subjective 2 Subjective: doing well Medications: Reviewed: Yes Vitals/I&O/Wt Last Vital Signs Temp 98.1 F 11/23/23 05:47 Pulse 75 11/23/23 06:00 Resp 18 11/23/23 06:00 BP 124/78 11/23/23 06:00 Pulse Ox 99 11/23/23 06:00 O2 Del Method Room Air 11/23/23 06:00 11/22/23 11/23/23 11/23/23 22:59 06:59 14:59 Intake Total 570 / 1233.75 150 / 1383.75 Output Total 250 / 425 325 / 750 Balance 320 / 808.75 -175 / 633.75 Weight last 48 hrs Weight 57.379 kg Weight 57.379 kg Physical Exam 2 Narrative: awake , no distress no edema Urinary Catheter Management: Valentine: Cath Placed During This Visit: yes Reason for Continuing Indwelling Catheter: Accurate Measurement of Urinary Output in Critically Ill Patients Urinary Catheter Date of Insertion: 11/21/23 Urinary Catheter Time of Insertion: 04:55 Data 11/24/23 04:56 11/24/23 04:56 Micro: Microbiology 11/21/23 05:20 Urine Culture - Preliminary Urine,Clean Catch 11/21/23 05:21 Blood Culture - Preliminary Blood NEGATIVE TO DATE 11/21/23 05:16 Blood Culture - Preliminary Blood NEGATIVE TO DATE A&P Assessment and plan (1) Hyponatremia: 1. Hyponatremia: Appears to be hypovolemic in the setting of severe nausea and vomiting,and NSAIDs use . Symptomatic with acute onset seizure while in the emergency department. Status post 3% saline . Sodium was 115 and improved to 133 currently. s/p DDAVP and s/p d5w. 2. Polyuria : resolved , s/p DDAVP , not low U osm - will repeat now 2. Acute onset seizure: Likely from hyponatremia versus other . Workup in progress, head CT negative--improved 3. Hypomagnesemia and hypocalcemia, repleted 4. Encephalopathy likely metabolic, monitor , imroving Attestations 2 Medical Necessity Statement*: per renny Coding Level of Care Code Acute Code for Chg Fwd Diagnoses Hyponatremia E87.1
[2023-11-23 09:28] LABS: Estmated Average Glucose 85; Hemoglobin A1C 4.6 % (4.0-6.0)
[2023-11-23 09:48] LABS: Iron 44 ug/dL (37-145); Percent Saturation 22.4 % (20-50); Total Iron Binding Capacity 196 mcg/dl; Unsaturated Iron Binding 152 ug/dL (112-347); Vitamin B12 1343 pg/mL (232-1245)
[2023-11-23 11:09] LABS: Add Urine Microscopic? NO; Charge for UA Resulting for Rev
[2023-11-23 11:11] LABS: Protein Urine Neg (Negative); Urine Appearance Clear (CLEAR); Urine Color Yellow (Yellow); pH Urine 6 (5-7)
[2023-11-23 11:12] LABS: Bilirubin Urine Neg (Negative); Blood Urine Neg (Negative); Glucose Urine UA Norm (Normal); Ketones Urine 2+ (Negative); Leukocyte Esterase Urine Negative (Negative); Nitrate Urine Negative (Negative); Urobilinogen Urine Norm (Negative)
[2023-11-23 11:30] LABS: Anion Gap 18.2 (5-19); Blood Urea Nitrogen 14 mg/dL (6-20); Calcium 7.9 mg/dL (8.5-10.5); Carbon Dioxide 16 mmol/L (22-29); Chloride 94 mmol/L (98-107); Creatinine Clr Calc Pharmacy 111.3266; Glomerular Filtration Rate 110.2 mL/min (90-130); Glucose 64 mg/dL (65-115); Osmolality Calculated 259 mOsm/kg (285-295); Potassium 3.2 mmol/L (3.5-5.1); Sodium 125 mmol/L (136-145)
--- NOTE | 2023-11-23 12:00 | MRR_ITS ---
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 COMPARISON: CT head wo con* [id number] 11/21/2023 4:12 AM FINDINGS: Limitations: Suboptimal evaluation of multiple sequences secondary to patient motion. Brain: No acute infarct. No intracranial hemorrhage. No significant white matter disease. Cerebral ventricles: Normal. No ventriculomegaly. Bones/joints: Unremarkable. Paranasal sinuses: Well aerated. No fluid levels. Mastoid air cells: Normal as visualized. No mastoid effusion. Orbital cavities: Orbits and globes are intact. Soft tissues: Unremarkable. MR/MR head wo con* [id number] IMPRESSION: Significant motion artifact limits evaluation. No obvious acute intracranial abnormality. If symptoms persist, consider repeat MRI when patient is able to fully cooperate with exam.
[2023-11-23 12:39] LABS: Prolactin 23.41 ng/mL (4.8-23.3)
[2023-11-23] MEDS: potassium chloride ER 20 mEq Tablet 40 MEQ PO (12:51)
[2023-11-23 12:55] LABS: ABG PCO2 28.6 mmHg (35-45); ABG PH Result 7.38 (7.35-7.45); Alveolar-Arterial Oxygen Gradi 0.3 mmHg (5-10); Base Excess ABG -6.8 mmol/L (-2.0-2.0); Blood Gas Operator Identificat GD; Blood Gas Sample Site Brachial, right; Blood Gas Sample Type Arterial; HGB O2 Sat 97.5 % (95-100); Ionized Calcium Level - ABG 1.2 mmol/L (1.1-1.4); Methemoglobin 0.8 % (0.4-1.5); Oxygen Device ROOM AIR; Oxygen Saturation ABG 99.3; Potassium Level - ABG 3.5 mmol/L (3.5-5.0); Total Hemoglobin 11.8 g/dL (12-16)
--- NOTE | 2023-11-23 12:57 | ECG_ITS ---
[facility] Test Date: 2023-11-23 Pat Name: Una Crain Department: Room: [facility] Gender: Female Instrument [employer]: : [id number] Requested By: Mt Kc Order Number: [id number] Reading MD: Gabriel Gerardo M.D. Measurements Intervals [place] Rate: 85 P: 72 IL: 160 QRS: 81 QRSD: 90 T: 69 QT: 363 QTc: 432 Interpretive Statements SINUS RHYTHM NONSPECIFIC T-WAVE ABNORMALITY No previous ECG available for comparison Electronically Signed On 11-23-2023 15:31:03 CDT by Gabriel Gerardo M.D. [id number]
[2023-11-23 13:14] LABS: Cortisol Random 23.04 ug/dL (2.47-19.5)
[2023-11-23] MEDS: potassium phosphate (mEq K) 40 MEQ in sodium chloride 0.9% (100 ml) 100 ML 27.2699999999999996 MEQ IV (13:53)
[2023-11-23] MEDS: sodium chloride 0.9% 1,000 ML 75 ML IV ×2 (13:53→22:36)
[2023-11-23 15:10] LABS: Osmolality Urine 97 mOsm/kg (50-1200)
--- NOTE | 2023-11-23 15:35 | P.PN_ITS ---
Subjective 2 Subjective: Hospital course, labs appreciated. Today morning seen with at bedside who is also interpreting as patient can partially understand. As per the patient and her he has been having headaches for last 1 week after which she started having multiple episodes of nausea and vomiting for 1 day prior to coming to the hospital. Currently denies any headache, nausea or vomiting. States she is hungry. Complaining of feeling weak. As per and nursing staff more awake and cognitive today than yesterday. Urine output of around 750 cc overnight. Remains on room air. Hemodynamically stable. As per patient has also been having irregular menstrual period which is unusual for her for last 4 to 5 months. Patient denies any visual disturbance. Medications: Reviewed: Yes Vitals/I&O/Wt Last Vital Signs Temp 98.1 F 11/23/23 05:47 Pulse 69 11/23/23 14:00 Resp 20 H 11/23/23 14:00 BP 137/71 11/23/23 14:00 Pulse Ox 99 11/23/23 14:00 O2 Del Method Room Air 11/23/23 06:00 11/23/23 11/23/23 11/23/23 06:59 14:59 22:59 Intake Total 150 / 1383.75 100 / 100 Output Total 325 / 750 Balance -175 / 633.75 100 / 100 Weight last 48 hrs Weight 57.379 kg Weight 57.379 kg Physical Exam 2 Narrative: General: AOx3, understands [place]ian partially, interprets, no acute distress. Head: Normocephalic. Atraumatic. Neck: No JVD. Cardiovascular: RRR. No gallops. No murmurs. No peripheral edema. Lungs: Clear to auscultation, no use of accessory muscles, no crackles or wheezes. Skin: No jaundice. No rashes. Abdomen: Normal bowel sounds, abdomen soft and nontender. Extremities: No cyanosis or clubbing. Musculoskeletal: No swollen or erythematous joints. Neurological: No myoclonus. Urinary Catheter Management: Valentine: Cath Placed During This Visit: yes Reason for Continuing Indwelling Catheter: Accurate Measurement of Urinary Output in Critically Ill Patients Urinary Catheter Date of Insertion: 11/21/23 Urinary Catheter Time of Insertion: 04:55 Data 11/23/23 03:50 11/23/23 10:41 Micro: Microbiology 11/21/23 05:20 Urine Culture - Preliminary Urine,Clean Catch A&P Assessment and plan (1) Hyponatremia: Unknown cause. Could be in setting of dehydration along with nausea and vomiting which is present on admission. Sodium level on review seems to be all over the place. Lowest at 116 and highest at 133. Post D5W, 3%, DDAVP 1 dose. Currently 126. Hold off IV fluids for now. Recheck urine lites, urinalysis, repeat BMP at 11 AM. Will plan for normal saline versus fluid restriction as per sodium levels. Currently patient is euvolemic. After that BMP every 8 hour check. Nephrology on board. Unknown cause. Could be in setting of gastroenteritis. Patient also complained of headache for a week prior to nausea and vomiting. Gives history of a possible tick bite earlier in the ER. Gives history of irregular menstrual cycle for last 6 to 7 months. Already on doxycycline. Check prolactin level, ACTH level as patient has multiple electrolyte abnormality, cortisol level he, TSH. Check MRI head to rule out empty sella syndrome versus prolactinoma. (2) Seizure: Most likely in setting of hyponatremia. No past history. No recurrence. (3) Nausea & vomiting: (4) Hypokalemia: Along with hypophosphatemia. Continue to monitor magnesium and phosphorus level daily. Replace with 40 mg of oral potassium along with 40 mg of potassium phosphate. Repeat BMP in evening. (5) Hypomagnesemia: (6) Lactic acidosis: Plan Code Status: Full DVT PPx: Heparin GI PPx: Protonix Diet: Restart regular diet. Discharge plan: Most likely home once medically stable. Plan to transition to [facility] in a.m. if sodium level remained stable Treatment plan discussed in detail with patient with as site interpreter at bedside. Attestations 2 Medical Necessity Statement*: Requires further hospitalization for management of severe hyponatremia leading to seizure, hypokalemia Diagnoses Hyponatremia E87.1 Seizure R56.9 Nausea & vomiting R11.2 Hypokalemia E87.6 Hypomagnesemia E83.42 Lactic acidosis E87.20
[2023-11-23 16:11] LABS: Potassium, Radom Urine 30 mmol/L; Urine Random Chloride 74 mmol/L; Urine Random Sodium 100 mmol/L
[2023-11-23] MEDS: haloperidol inj 5 mg/mL INJ 1 mL 2 MG IVP (16:46)
[2023-11-23 16:58] LABS: Blood Urea Nitrogen 14 mg/dL (6-20); Calcium 8.3 mg/dL (8.5-10.5); Carbon Dioxide 18 mmol/L (22-29); Chloride 94 mmol/L (98-107); Creatinine Clr Calc Pharmacy 111.3266; Glomerular Filtration Rate 110.2 mL/min (90-130); Glucose 84 mg/dL (65-115); Osmolality Calculated 256 mOsm/kg (285-295); Phosphorus 3.3 mg/dL (2.5-4.5); Sodium 123 mmol/L (136-145)
[2023-11-23] MEDS: sodium chloride 0.9% 500 ML IV (19:09)
[2023-11-23] MEDS: heparin 5,000 unit/mL INJ 1 mL 5000 UNIT SUBCUT (19:11)
--- NOTE | 2023-11-23 20:19 | PC.NURSE ---
Removed Catheter: Pt pointing and grabbing Valentine catheter, asking multiple times if it can be removed. Dr. Kc notified. New order to remove.
--- NOTE | 2023-11-23 20:36 | PC.NURSE ---
D/C Sitter: Pt is calm and cooperative, speaking in Czech, following commands and safety instruction. Contacted Dr. Alvarado, new order to d/c one-to-one observation. Bed alarm is on, door open, call light in reach.
[2023-11-23 20:41] LABS: Anion Gap 13.1 (5-19); Blood Urea Nitrogen 11 mg/dL (6-20); Calcium 8.5 mg/dL (8.5-10.5); Carbon Dioxide 20 mmol/L (22-29); Chloride 105 mmol/L (98-107); Creatinine Clr Calc Pharmacy 95.4228; Glomerular Filtration Rate 92.2 mL/min (90-130); Glucose 109 mg/dL (65-115); Osmolality Calculated 278 mOsm/kg (285-295); Potassium 4.1 mmol/L (3.5-5.1); Sodium 134 mmol/L (136-145)
--- NOTE | 2023-11-23 20:51 | PC.NURSE ---
Notified Physician: Called Dr. Kc @[id number] to update on BMP results. New order for 500ml Normal Saline Bolus ONCE NOW.
[2023-11-23] MEDS: sodium chloride 0.9% 500 ML 999 ML IV (21:02)
[2023-11-24] VITALS (16 sets, daily range): BP systolic 113–139; BP diastolic 66–92; PULSE 63–104; RESP 13–21; O2SAT 96–99
[2023-11-24] MEDS: ketorolac 30 mg/mL INJ 15 MG IVP (04:57)
[2023-11-24 05:29] LABS: Basophils # 0.1 10^3/uL (0.0-0.1); Basophils % 0.5 %; Eosinophils # 0.1 10^3/uL (0.0-0.8); Eosinophils % 0.7 %; Hematocrit 33.1 % (36-47); Lymphocytes # 2.3 10^3/uL (0.8-4.8); Lymphocytes % 22.2 %; Mean Corpuscular HGB Conc 34.1 g/dL (30-55); Mean Corpuscular Hemoglobin 31.3 pg (27-33); Mean Corpuscular Volume 91.7 fl (85-98); Mean Platelet Volume 12.3 fL (7.4-10.4); Monocytes # 1.2 10^3/uL (0.2-0.9); Neutrophils # 6.58 10^3/uL (1.8-7.7); Neutrophils % 64.3 %; Nucleated Red Blood Cells % 0 %; Platelet Count 170 10^3/cmm (157-399); Red Blood Count 3.61 10^6/uL (3.85-5.65); Red Cell Distribution Width 11.3 % (12.1-15.1); White Blood Count 10.23 10^3/uL (3.29-11.43)
[2023-11-24 05:50] LABS: Alanine Aminotransferase 48 U/L (0-33); Albumin Level 3.6 g/dL (3.5-5.2); Alkaline Phosphatase 62 U/L (35-105); Anion Gap 12.8 (5-19); Aspartate Amino Transferase 105 U/L (0-32); Blood Urea Nitrogen 10 mg/dL (6-20); Calcium 8.1 mg/dL (8.5-10.5); Carbon Dioxide 21 mmol/L (22-29); Chloride 104 mmol/L (98-107); Creatinine Clr Calc Pharmacy 94.0296; Globulin 2.5 g/dL (1.3-4.6); Glomerular Filtration Rate 92.2 mL/min (90-130); Glucose 78 mg/dL (65-115); Osmolality Calculated 276 mOsm/kg (285-295); Potassium 3.8 mmol/L (3.5-5.1); Sodium 134 mmol/L (136-145); Total Bilirubin 0.8 mg/dL (0.15-1.2); Total Protein 6.1 g/dL (6.6-8.7)
[2023-11-24 05:51] LABS: Magnesium 1.7 mg/dL (1.7-2.3)
[2023-11-24 06:10] LABS: Folate Level 17.3 ng/mL (4.8-37.3)
--- NOTE | 2023-11-24 08:15 | P.PN_ITS ---
Subjective 2 Subjective: mental status improved Medications: Reviewed: Yes Vitals/I&O/Wt Last Vital Signs Temp 98.6 F 11/23/23 23:35 Pulse 63 11/24/23 06:00 Resp 19 H 11/24/23 06:00 BP 130/77 11/24/23 06:00 Pulse Ox 96 11/24/23 06:00 O2 Del Method Room Air 11/24/23 06:00 11/23/23 11/24/23 11/24/23 22:59 06:59 14:59 Intake Total 1708.5106 / 1808.5106 712.5 / 2521.0106 Output Total 3050 / 3050 825 / 3875 Balance -1341.4894 / -1241.4894 -112.5 / -1353.9894 Weight last 48 hrs Weight 55.293 kg Weight 57.379 kg Physical Exam 2 Narrative: awake , no distress no edema Urinary Catheter Management: Valentine: Cath Placed During This Visit: yes, but has since been removed by the nurse Reason for Continuing Indwelling Catheter: Decision to DC Catheter Urinary Catheter Date of Insertion: 11/21/23 Urinary Catheter Time of Insertion: 04:55 Date Urinary Catheter Removed: 11/23/23 Time Urinary Catheter Discontinued: 20:23 Data 11/24/23 04:56 11/24/23 04:56 Micro: Microbiology 11/21/23 05:20 Urine Culture - Preliminary Urine,Clean Catch A&P Assessment and plan (1) Hyponatremia: 1. Hyponatremia: Appears to be hypovolemic in the setting of severe nausea and vomiting,and NSAIDs use . Symptomatic with acute onset seizure while in the emergency department. Status post 3% saline . Sodium was 115 and improved to 133 currently. s/p DDAVP and s/p d5w. 2. Polyuria : resolved , s/p DDAVP , not low U osm - will repeat now 2. Acute onset seizure: Likely from hyponatremia versus other . Workup in progress, head CT negative--improved 3. Hypomagnesemia and hypocalcemia, repleted 4. Encephalopathy likely metabolic, monitor , imroving Plan per [facility] Attestations 2 Medical Necessity Statement*: per [facility] Coding Level of Care Code Acute Code for [facility] Fwd Diagnoses Hyponatremia E87.1
[2023-11-24] MEDS: pantoprazole 40 mg SDV IVP (08:24)
[2023-11-24] MEDS: doxycycline 100 MG in sodium chloride 0.9% (plus) 100 ML IV (08:24)
--- NOTE | 2023-11-24 11:30 | P.DS_ITS ---
Discharge Providers Date of Admission: 11/21/23 05:34 Date of Discharge: November 24, 2023 Attending Provider at Admission: Calos Marino MD Attending Provider at Discharge: Mt Kc MD Consults: 30 nephrology Primary Care Provider: Moise Whitehead MD Diagnoses at Discharge Discharge Diagnosis (1) Hyponatremia: Status: Acute (2) Nausea & vomiting: Status: Acute (3) Hypokalemia: Status: Acute (4) Hypomagnesemia: Status: Acute (5) Lactic acidosis: Status: Acute (6) Perimenopausal menorrhagia: Status: Acute (7) Seizure: Status: Acute Reason for Visit Reason for Visit: n/v delayed response Brief History: History as per HPI: Una Crain is a 43 year old female with a past medical history significant for ovarian cyst who presents to the emergency department with intractable nausea and vomiting. Of note, patient collapsed and appeared to have seizure in the ED waiting room. Patient has no known history of seizure d isorder. She appears to be in a postictal state on physical exam and unable to provide pertinent history. History obtained from collateral information from family, ED provider and chart reviewing. Patient was reportedly in her usual state of health until yesterday evening around 7 PM when she developed severe headache following by severe and intractable nausea and vomiting. They report multiple episodes of emesis. Spouse noted her responses throughout the course of the evening became slower and slower as she became more lethargic. Spouse denies any similar symptoms. He states they have two children who also have been well without symptoms. They have been eating the same foods. He denies that she has complained of other new complaints. Hospital Course Hospital Course Patient was admitted to the ICU for further evaluation and management of seizure in setting of acute hyponatremia with sodium level of 115 on admission along with intractable nausea and vomiting and headache. Given significant symptomatic hyponatremia nephrology was consulted. During hospitalization her sodium levels were difficult to control and were very labile with highest being of 133 and lowest hemoglobin was 5. She received multiple management including D5W, 3% normal saline and DDAVP. Patient did have episode of polyuria with urine output of more than 6 L on 1 day. Sodium levels gradually improved her mentation also improved. After waking up patient with history of irregular menstrual period over the last few months along with occasional weight loss, denied any past history of seizure or labile sodium levels. Given concerns for irregular menstrual period recently further workup for possible empty sella syndrome versus prolactinoma was entertained. Prolactin level was mildly elevated, MRI was done but was not successful due to motion artifact. Patient is awake and alert back to her baseline for more than 48 hours, able to tolerate oral diet for last 24 hours. Sodium level has remained stable. She is discharged hemodynamically stable condition advised to follow-up with her PCP within next 1 week for repeat BMP. She should also get a referral to see rf test engineer from her PCP. She is to maintain her oral hydration with at least 2 L of water daily along with half a can of Gatorade. Only discharge instructions were discussed in detail with the patient with the help of telephone ice rink attendant. Patient verbalized understanding. Discharge instructions were also discussed in detail with patient friend/caregiver at bedside. Patient was also counseled against using any further herbal products or any medication from outside the country. Physical Exam Narrative: General: AOx3, understands [place] partially, interprets, no acute distress. Head: Normocephalic. Atraumatic. Neck: No JVD. Cardiovascular: RRR. No gallops. No murmurs. No peripheral edema. Lungs: Clear to auscultation, no use of accessory muscles, no crackles or wheezes. Skin: No jaundice. No rashes. Abdomen: Normal bowel sounds, abdomen soft and nontender. Extremities: No cyanosis or clubbing. Musculoskeletal: No swollen or erythematous joints. Neurological: No myoclonus. Urinary Catheter Management: Valentine: Cath Placed During This Visit: yes, but has since been removed by the nurse Reason for Continuing Indwelling Catheter: Decision to DC Catheter Urinary Catheter Date of Insertion: 11/21/23 Urinary Catheter Time of Insertion: 04:55 Date Urinary Catheter Removed: 11/23/23 Time Urinary Catheter Discontinued: 20:23 Discharge Data Studies Completed and Pending Completed Studies During Hospitalization Category Date Time Status CT abdomen pelvis w con* [id number] Urgent Cat Scan 11/21/23 04:[address] head wo con* [id number] Stat Cat Scan 11/21/23 04:02 Completed CXRP [XR chest 1V portable [id number]] Routine Exams 11/21/23 09:31 Completed XR chest 1V portable [id number] Stat Exams 11/21/23 04:02 Completed MR head wo con* [id number] Routine MRI 11/23/23 12:00 Completed Pending at discharge Category Date Time Status Adrenocorticotropic Hormone Routine Lab 11/23/23 10:41 Received Blood Culture Stat Lab 11/21/23 05:21 Results MAG [Magnesium] AM LABS Lab 11/25/23 04:00 Ordered MAG [Magnesium] AM LABS Lab 11/26/23 04:00 Ordered Osmolality Urine Stat Lab 11/24/23 10:25 Received PHOS [Phosphorus] AM LABS Lab 11/24/23 16:00 Ordered PHOS [Phosphorus] AM LABS Lab 11/25/23 16:00 Ordered Tick Panel Routine Lab 11/21/23 10:23 Results Radiology Impressions Head CT 11/21/23 04:02 IMPRESSION: No acute intracranial abnormality. Abdomen/Pelvis CT 11/21/23 04:46 IMPRESSION: Negative for acute abdominopelvic pathology. Head MRI 11/23/23 12:00 IMPRESSION: Significant motion artifact limits evaluation. No obvious acute intracranial abnormality. If symptoms persist, consider repeat MRI when patient is able to fully cooperate with exam. Laboratory Results WBC 10.23 10^3/uL (3.29-11.43) 11/24/23 04:56 RBC 3.61 10^6/uL (3.85-5.65) L 11/24/23 04:56 Hgb 11.30 g/dL (11.27-16.99) 11/24/23 04:56 Hct 33.1 % (36-47) L 11/24/23 04:56 MCV 91.7 fl (85-98) 11/24/23 04:56 MCH 31.3 pg (27-33) 11/24/23 04:56 MCHC 34.1 g/dL (30-55) 11/24/23 04:56 RDW 11.3 % (12.1-15.1) L 11/24/23 04:56 Plt Count 170 10^3/cmm (157-399) 11/24/23 04:56 MPV 12.3 fL (7.4-10.4) H 11/24/23 04:56 Neut % (Auto) 64.3 % 11/24/23 04:56 Lymph % (Auto) 22.2 % 11/24/23 04:56 Davidson % (Auto) 12.0 % 11/24/23 04:56 Eos % (Auto) 0.7 % 11/24/23 04:56 Baso % (Auto) 0.5 % 11/24/23 04:56 Neut # (Auto) 6.58 10^3/uL (1.8-7.7) 11/24/23 04:56 Lymph # (Auto) 2.3 10^3/uL (0.8-4.8) 11/24/23 04:56 Davidson # (Auto) 1.2 10^3/uL (0.2-0.9) H 11/24/23 04:56 Eos # (Auto) 0.1 10^3/uL (0.0-0.8) 11/24/23 04:56 Baso # (Auto) 0.1 10^3/uL (0.0-0.1) 11/24/23 04:56 Nucleated RBC % (auto) 0 % 11/24/23 04:56 Nucleated RBCs # 0.0 /100WBC 11/24/23 04:56 Specimen Type Arterial 11/23/23 12:35 Sample Site Brachial, right 11/23/23 12:35 ABG pH 7.38 (7.35-7.45) 11/23/23 12:35 ABG pCO2 28.6 mmHg (35-45) L 11/23/23 12:35 ABG pO2 110.0 mmHg (80.0-100.0) H 11/23/23 12:35 ABG HCO3 17.0 mmol/L (22-26) L 11/23/23 12:35 ABG O2 Saturation 99.3 11/23/23 12:35 ABG Base Excess -6.8 mmol/L (-2.0-2.0) L 11/23/23 12:35 Joey Test N/a 11/23/23 12:35 A-a O2 Gradient 0.3 mmHg (5-10) L 11/23/23 12:35 Hematocrit 36.0 % (37-47) L 11/23/23 12:35 Hgb O2 Saturation 97.5 % (95-100) 11/23/23 12:35 Carboxyhemoglobin 1.0 %THgb (0.4-20.1) 11/23/23 12:35 Methemoglobin 0.8 % (0.4-1.5) 11/23/23 12:35 Total Hemoglobin 11.8 g/dL (12-16) L 11/23/23 12:35 Sodium 128.0 mmol/L (131-143) L 11/23/23 12:35 Potassium 3.5 mmol/L (3.5-5.0) 11/23/23 12:35 Glucose 65.0 mg/dL (70-115) L 11/23/23 12:35 Ionized Calcium 1.2 mmol/L (1.1-1.4) 11/23/23 12:35 O2 Delivery Device Room air 11/23/23 12:35 Distribution Systems Serviceperson ID Gd 11/23/23 12:35 Sodium 134 mmol/L (136-145) L 11/24/23 04:56 Potassium 3.8 mmol/L (3.5-5.1) 11/24/23 04:56 Chloride 104 mmol/L (98-107) 11/24/23 04:56 Carbon Dioxide 21 mmol/L (22-29) L 11/24/23 04:56 Anion Gap 12.8 (5-19) 11/24/23 04:56 BUN 10 mg/dL (6-20) 11/24/23 04:56 Creatinine 0.7 mg/dL (0.5-0.9) 11/24/23 04:56 GFR Calculation 92.2 mL/min (90-130) 11/24/23 04:56 Glucose 78 mg/dL (65-115) 11/24/23 04:56 POC Glucose 103 mg/dL (70-110) 11/22/23 10:57 Estimat Average Glucose 85 11/23/23 03:50 Hemoglobin A1c 4.6 % (4.0-6.0) 11/23/23 03:50 Calculated Osmolality 276 mOsm/kg (285-295) L 11/24/23 04:56 Lactic Acid 11.6 mmol/L (0.5-2.2) H* 11/21/23 04:00 Lactic Acid (Sepsis) 1.3 mmol/L (0.5-2.2) 11/21/23 06:46 Calcium 8.1 mg/dL (8.5-10.5) L 11/24/23 04:56 Phosphorus 3.3 mg/dL (2.5-4.5) D 11/23/23 16:29 Magnesium 1.7 mg/dL (1.7-2.3) 11/24/23 04:56 Iron 44 ug/dL (37-145) 11/23/23 03:50 TIBC 196 mcg/dl 11/23/23 03:50 % Saturation 22.4 % (20-50) 11/23/23 03:50 Unsat Iron Binding 152 ug/dL (112-347) 11/23/23 03:50 Total Bilirubin 0.8 mg/dL (0.15-1.2) 11/24/23 04:56 AST 105 U/L (0-32) H 11/24/23 04:56 ALT 48 U/L (0-33) H 11/24/23 04:56 Alkaline Phosphatase 62 U/L (35-105) 11/24/23 04:56 C-Reactive Protein 3.0 mg/L (0.0-4.9) 11/21/23 04:00 Total Protein 6.1 g/dL (6.6-8.7) L 11/24/23 04:56 Albumin 3.6 g/dL (3.5-5.2) 11/24/23 04:56 Globulin 2.5 g/dL (1.3-4.6) 11/24/23 04:56 Triglycerides 54 mg/dL (0-150) 11/23/23 03:50 Cholesterol 150 mg/dL (0-200) 11/23/23 03:50 LDL Cholesterol, Calc 71 mg/dL (50-129) 11/23/23 03:50 HDL Cholesterol 68 mg/dL (60-100) 11/23/23 03:50 LDL/HDL Ratio 1.04 RATIO (0.00-3.22) 11/23/23 03:50 Cholesterol/HDL Ratio 2.21 mg/dL (0.0-4.40) 11/23/23 03:50 Vitamin B12 1343 pg/mL (232-1245) H 11/23/23 03:50 Folate 17.3 ng/mL (4.8-37.3) 11/24/23 04:56 Procalcitonin 0.04 ng/mL (0-0.5) 11/21/23 04:00 TSH 2.07 uIU/mL (0.27-4.20) 11/23/23 03:50 Prolactin 23.41 ng/mL (4.8-23.3) H 11/23/23 10:41 HCG, Qual Negative (Negative) 11/21/23 04:00 Random Cortisol 23.04 ug/dL (2.47-19.5) H 11/23/23 10:41 Urine Color Yellow (Yellow) 11/23/23 10:50 Urine Appearance Clear (CLEAR) 11/23/23 10:50 Urine pH 6 (5-7) 11/23/23 10:50 Ur Specific Noble 1.030 (1.005-1.030) 11/23/23 10:50 Urine Protein Neg (Negative) 11/23/23 10:50 Urine Glucose (UA) Norm (Normal) 11/23/23 10:50 Urine Ketones 2+ (Negative) H 11/23/23 10:50 Urine Blood Neg (Negative) 11/23/23 10:50 Urine Nitrate Negative (Negative) 11/23/23 10:50 Urine Bilirubin Neg (Negative) 11/23/23 10:50 Urine Urobilinogen Norm mg/dL (Negative) 11/23/23 10:50 Ur Leukocyte Esterase Negative (Negative) 11/23/23 10:50 Urine RBC 15-25 /hpf (0-2) H 11/21/23 05:20 Urine WBC 0-4 /hpf (0-5) H 11/21/23 05:20 Ur Squamous Epith Cells 0-4 /hpf (0-5) H 11/21/23 05:20 Amorphous Sediment Not Reportable 11/21/23 05:20 Urine Bacteria Trace /hpf (NONE) 11/21/23 05:20 Urine Mucus Trace /hpf 11/21/23 05:20 Urine Osmolality 97 mOsm/kg (50-1200) 11/21/23 18:00 U Random Total Protein 4 mg/dL 11/21/23 18:00 Ur Random Sodium 100 mmol/L 11/23/23 10:50 Ur Random Potassium 30 mmol/L 11/23/23 10:50 Ur Random Chloride 74 mmol/L 11/23/23 10:50 Ur Random Calcium 1.3 mg/dL 11/21/23 18:00 Urine Creatinine 7 mg/dL (28-217) L 11/21/23 18:00 Salicylates < 0.3 mg/dL (3-10) L 11/21/23 04:00 Urine Opiates Screen Negative ng/mL (Negative) 11/21/23 05:20 Acetaminophen < 5.0 ug/mL (10-30) L 11/21/23 04:00 Ur Barbiturates Screen Negative ng/mL (Negative) 11/21/23 05:20 Ur Phencyclidine Scrn Negative ng/mL (Negative) 11/21/23 05:20 Ur Amphetamines Screen Negative ng/mL (Negative) 11/21/23 05:20 U Benzodiazepines Scrn Negative ng/mL (Negative) 11/21/23 05:20 Urine Cocaine Screen Negative ng/mL (Negative) 11/21/23 05:20 U Marijuana (THC) Screen Negative ng/mL (Negative) 11/21/23 05:20 Ethyl Alcohol < 10 mg/dL (0-10) 11/21/23 04:00 Adenovirus (PCR) Not detected (NOT DETECT) 11/21/23 05:20 Lyme Ab (Western Blot) <0.90 index 11/21/23 10:23 C. pneumoniae DNA (PCR) Not detected (NOT DETECT) 11/21/23 05:20 Coronavirus 229E (PCR) Not detected (NOT DETECT) 11/21/23 05:20 Human Metapneumovir PCR Not detected (NOT DETECT) 11/21/23 05:20 Influenza A (H1) PCR Not detected (NOT DETECT) 11/21/23 05:20 Influ A (H1/09) PCR Not detected (NOT DETECT) 11/21/23 05:20 Influenza A (H3) PCR Not detected (NOT DETECT) 11/21/23 05:20 Influenza Type A (PCR) Not detected (NOT DETECT) 11/21/23 05:20 Influenza Type B (PCR) Not detected (NOT DETECT) 11/21/23 05:20 M. pneumoniae (PCR) Not detected (NOT DETECT) 11/21/23 05:20 Parainfluenza 1 (PCR) Not detected (NOT DETECT) 11/21/23 05:20 Parainfluenza 2 (PCR) Not detected (NOT DETECT) 11/21/23 05:20 Parainfluenza 3 (PCR) Not detected (NOT DETECT) 11/21/23 05:20 Parainfluenza 4 (PCR) Not detected (NOT DETECT) 11/21/23 05:20 RSV Type A (PCR) Not detected (NOT DETECT) 11/21/23 05:20 RSV Type B (PCR) Not detected (NOT DETECT) 11/21/23 05:20 Entero/Rhino (PCR) Not detected (NOT DETECT) 11/21/23 05:20 SARS-CoV-2 (PCR) Not detected (NOT DETECT) 11/21/23 05:20 Vitals Last Vital Signs Temp 98.6 F 11/23/23 23:35 Pulse 74 11/24/23 09:00 Resp 16 11/24/23 09:00 BP 113/66 11/24/23 09:00 Pulse Ox 96 11/24/23 06:00 O2 Del Method Room Air 11/24/23 06:00 Discharge Plan Discharge Patient Disposition: Home Condition: Serious Prescriptions: Continued multivitamin Tablet 1 tab PO DAILY naproxen 500 mg tablet 500 mg PO BID PRN (Reason: pain) Qty: 30 1RF Discharge Orders: Discharge Order (Routine); Ordered 11/24/23 Ordered By: Mt Kc Referrals: Moise Whitehead MD [Primary Care Provider] - 11/30/23 10:30 am Discharge Diet: Usual diet Discharge Activity: Resume usual activity Patient Instructions: Dehydration - Adult, Hyponatremia (DC), Hypokalemia (DC), Hypomagnesemia (DC), Opioid Safety Activity Restrictions/Additional Instructions: Increase oral intake of fluid. Take at least 2 L of water a day along with at least half a can of Pedialyte a day. Please follow-up with a primary care provider within next 1 week for repeat BMP and sodium level check. Please make sure that you change positions slowly that is getting up from laying position to standing up gradually. Please try to avoid using herbal products Discharge Attestations Time Spent in Discharge Care*: greater than 30 min Specific Discharge Activities: educating patient, educating and/or supporting family/caregiver, discussing with pcp/other providers, discussing with showcase trimmer/social workers/dc planners, documenting/other paperwork and evaluating patient/reviewing data Status at Discharge: Cognitive status at discharge: cognitively intact , Behavioral status at discharge: cooperative , Functional status at discharge: independent ambulation , Overall status at discharge: patient is back to baseline Quality Metrics Clinical Quality Measures [ No reported AMI, CVA or VTE this stay] Coding Level of Care Code 08457 Total time (in minutes) for Discharge: 50 Diagnoses Hyponatremia E87.1 Nausea & vomiting R11.2 Hypokalemia E87.6 Hypomagnesemia E83.42 Lactic acidosis E87.20 Perimenopausal menorrhagia N92.4 Seizure R56.9
--- NOTE | 2023-11-24 14:03 | PC.NURSE ---
discharge instructions for dehydration given in tajik.pt verb understanding of instructions.pt has a good support system to navigate the health system for appts,etc.discharged via w/c to exit at this time.spouse to drive pt home
[2023-11-24 21:20] LABS: E. Chaffeensis AB IGG <1:64; E. Chaffeensis AB IGM <1:20
[2023-11-25 13:00] LABS: Osmolality Urine 396 mOsm/kg (50-1200)
[2023-11-25 19:11] LABS: RMSF IGG NOT DETECTED; RMSF IGM NOT DETECTED
[2023-11-28 03:29] LABS: Adrenocorticotropic Hormone 14 pg/mL (6-50)
== END 2023-11-24 14:07 | disposition home or self-care (01) | DRG 640 ==
LOC: ER 04:56 → ICU 05:36
PROVIDERS: Family Medicine; Hospitalist; Admitting Provider Internal Medicine; Emergency Provider Emergency Medicine; PCP Family Medicine; Visit Provider Student in an Organized Health Care Education/Training Program
DX: E87.1 Hypo-osmolality and hyponatremia (principal); G93.41 Metabolic encephalopathy; E87.6 Hypokalemia; E83.42 Hypomagnesemia; R11.2 Nausea with vomiting, unspecified; R51.9 Headache, unspecified; R56.9 Unspecified convulsions; R35.89 Other polyuria; E87.20 Acidosis, unspecified; N92.4 Excessive bleeding in the premenopausal period
CPT/HCPCS: 36415; 36416; 36573; 36592; 36600; 51702; 70450; 70551; 71045; 74177; 80048; 80051; 80053; 80061; 80306; 80307; 81001; 81003; 82024; 82330; 82340; 82436; 82533; 82570; 82607; 82746; 82803; 82805; 82962; 83036; 83540; 83550; 83605; 83735; 83935; 84100; 84133; 84145; 84146; 84156; 84300; 84443; 84703; 85025; 86140; 86618; 86666; 86757; 87040; 87086; 87486; 87581; 87633; 92523; 92610; 93005; 96372; 96374; 96376; 99285; C1751; C9113; J0131; J1630; J1644; J1885; J2060; J2597; J3475; J3480; J3490; J7030; J7040; J7070; J7131; Q3014; Q9967